=== PATIENT | male | born 1950 | race Caucasian/White ===

== ENCOUNTER 2018-08-18 19:59 | Emergency (ER) | payer OTHER, SELFPAY ==
[2018-08-18] VITALS (7 sets, daily range): BP systolic 125–132; BP diastolic 61–69; PULSE 68–89; RESP 13–25; TEMP 36.6; O2SAT 94–100
--- NOTE | 2018-08-18 20:06 | DI.CT_ITS ---
SYMPTOM/DIAGNOSIS: LUQ DISTENSION, SUSPECT HERNIA, ? INCARCERATION, H/O LEUKEMIA AND SPLENECTOMY, LLQ PAIN ABDOMEN AND PELVIC CT: CT examination of the abdomen and pelvis was performed with a bolus infusion of 100 cc's of Omnipaque 350 and ingestion of dilute barium. Images obtained through the lung bases are unremarkable. Liver, spleen and pancreas appear normal. Note is made of cholelithiasis. No pericholecystic edema or fluid collection is seen. No biliary dilatation is seen. Abdominal aorta is of normal diameter and no major vascular abnormality is seen. Adrenals appear normal bilaterally. There are multiple bilateral renal cysts and bilateral non obstructing renal calculi. No ureteral calcification is seen. No hydronephrosis. No abdominal or pelvic adenopathy is seen. Appendix is normal. Note is made of fluid filled ascending and transverse colon which may be associated with diarrhea. No evidence of obstruction. Ventral hernia is noted with its aperture measuring about 2 cm. in diameter with 9 cm. in diameter contents including fat but no bowel. An additional small fat containing group of hernias is noted in the epigastric region superior to the largest ventral hernia. Comparison with previous examination of 11/2014 shows slight interval increase in size of the largest ventral hernia. CONCLUSION: No evidence of acute intra-abdominal process. Cholelithiasis noted. Fluid filled colonic distension consistent with diarrhea.
[2018-08-18 20:17] LABS: Lactate-non-spesis 2.5 mmol/l (0.6-1.4)
[2018-08-18] MEDS: Normal Saline 1,000 ML 1000 ML IV ×2 (20:17→21:16)
[2018-08-18] MEDS: Ondansetron 4 MG/2 ML VIAL IVP (20:18)
[2018-08-18 20:25] LABS: Abs Immature Grans 0.08 k/cumm (0.0-0.09); Absolute Basophil Count 0.03 k/cumm (0.0-0.2); Absolute Eosinophil Count 0.13 k/cumm (0.0-0.7); Absolute Lymphocyte Count 0.31 k/cumm (1.2-3.4); Absolute Monocyte Count 1.21 k/cumm (0.11-0.7); Absolute Neutrophil Count 6.51 k/cumm (1.2-6.7); Basophils % 0.4; Eosinophils % 1.6; HCT 43.7 % (40.0-50.0); Lymphocytes % 3.7; Mean Corp. HGB Concentration 34.3 g/dL (32.0-36.0); Mean Corpuscular Hemoglobin 31.8 pg (27.0-33.0); Mean Corpuscular Volume 92.6 fL (80-95); Mean Platelet Volume 10.5 fL (8.0-11.0); Monocytes % 14.6; Neutrophils % 78.7; Platelet Count 172 x1000/uL (130-400); RBC 4.72 m/cumm (4.50-6.00); RBC Distribution Width 13.9 % (11.8-14.1); White Blood Cell Count 8.27 k/cumm (4.4-10.8)
[2018-08-18 20:33] LABS: Lipase 79 U/L (73-393)
[2018-08-18 20:34] LABS: INR 1.2 (0.9-1.1); PTT Activated 18.4 sec (21.0-31.4); Prothrombin Time 11.6 sec (9.3-11.0)
[2018-08-18 20:36] LABS: ALT 33 U/L (12-78); AST 31 U/L (15-37); Albumin 4.5 g/dL (3.4-5.0); Alkaline Phosphatase 91 U/L (46-116); Anion Gap 13.8 mmol/L (3-11); BUN 23 mg/dL (7-18); Bilirubin, Total 1.5 mg/dL (0.2-1.0); CO2 24.2 mmol/L (21.0-32.0); CREATININE 1.02 mg/dL (0.70-1.30); Calcium 10.4 mg/dL (8.5-10.1); Chloride 104 mmol/L (98-107); Glucose 173 mg/dL (70-100); Potassium 4.3 mmol/L (3.5-5.1); Sodium 142 mmol/L (136-145); Total Protein 6.9 g/dL (6.4-8.2)
--- NOTE | 2018-08-18 20:45 | W.ED.GENAD ---
Discharge Plan Disposition Patient Disposition: HOME Condition: Good Discharge Details Chief Complaint: Abd Prob Clinical Impression: Abdominal pain, Ileus, Abdominal hernia Primary Care Provider: Vero Gutiérrez ED Provider: Thanh Ramon Home Meds and New Rx's Prescriptions: No Action Azothyoprin PO DAILY RF: 0 terazosin 2 MG capsule 2 mg PO DAILY RF: 0 ondansetron 4 MG tablet,disintegrating 4 mg PO PRN PRNRF: 0 quetiapine 25 mg Tablet 25 mg PO HS RF: 0 atorvastatin 40 mg Tablet 40 mg PO DAILY RF: 0 lisinopril 10 mg Tablet 10 mg PO DAILY RF: 0 sertraline 25 mg Tablet 12.5 mg PO DAILY RF: 0 Imbruvica 140 mg Tablet 140 mg PO DAILY RF: 0 Discharge Instructions Instructions: Ileus (ED), Incisional Hernia (GEN) Additional Instructions: You have a notable hernia, and at this time it is soft, does not show signs of strangulation. Since you are able to eat and drink well, and after discussion together he can be discharged home however you need to immediately follow-up with your surgeon at the CT in the next 24 to 48 hours. Please stick to a diet of liquid foods for the next 2 to 3 days. If you notice any worsening of your symptoms, or any new symptoms such as return of vomiting, diarrhea, fever, chills, shortness of breath, chest pain, numbness, weakness, or fainting , please return immediately to the emergency department for reevaluation. Please follow up with your primary care provider as soon as possible for reassessment and reevaluation. As always, it was a pleasure participating in your medical care today. Referrals: Vero Gutiérrez [Primary Care Provider] - Medical Decision Making This is a 67-year-old male who presents today for evaluation of left upper quadrant abdominal pain. He is currently on chemotherapy, which does have a common side effect of abdominal pain but he states that this is different compared to normal. He has had multiple episodes of vomiting since 5 PM. His pain has not been improving but rather worsening. Exam demonstrates distention in the left upper abdominal quadrant consistent with what I suspect to be a incisional hernia. We will get a CT scan with oral contrast to evaluate for incarceration and strangulation. It may just be mesentery. We will rehydrate, and reasses. 11:[address] scan results have returned demonstrate evidence of a fat-containing left supraumbilical ventral hernia that is increased in size. No bowel loops demonstrated within the hernia per virtual radiology. There is evidence of a localized left lower quadrant ileus, as well as localized wall thickening in the rectum suggestive of mild proctitis. Patient's laboratory work-up is returned, he has no evidence of elevated white count, no left shift, no bandemia. Renal function normal, electrolytes normal, initial lactate was elevated at 2.5, however repeat lactate is 0.8. Lipase is normal, urinalysis is negative for infection. On reassessment the patient has complete resolution of his symptoms. The ventral hernia is now completely nontender, and less distended. I am able to completely reduce it though. However with this he has no tenderness whatsoever. The patient denies any sensation of wanting to have a bowel movement, pain in his rectum, or pain in his lower abdomen. Repeat exam demonstrates no pain or tenderness there. He is been having regular bowel movements without any pain or difficulty. He has had no vomiting since his arrival with [facility]. He is tolerated fluids well without any complication. I did contact Dr. Wilks the surgeon and discussed the case with her. We reviewed the patient's reassessment, labs, and imaging. At this time we see no indication for acute surgical intervention. I did go back and discussed the case with the patient, and at this time he states that he would like to go home. I did discuss overnight observation, or referral with our surgeon he has made it very clear that he does not want this at this time, but would instead rather follow-up with the CT tomorrow. We discussed the risks and benefits of waiting, and he accepts these, and would [facility] to [facility]. Accepting these risks and through shared decision making process respecting the patient's wishes I do feel that this is reasonable. With no symptoms of tenesmus, pain with defecation, elevated white count, or lower abdominal pain rectal pain whatsoever, and in the setting of an absence of white count, no fever, no tachycardia I do not feel that antibiotic treatment for proctitis is indicated at this time. We will hold off and allow his close follow-up on an outpatient setting with [facility] team tomorrow morning. We discussed red flags which to return. I have extensively reviewed the treatment plan and discharge instructions with the patient and their family. I have addressed all patient concerns at this time. The patient and family was made aware of what symptoms to monitor for that would warrant a return to the emergency department. Discussed the plan with the patient and family, they demonstrate verbal understanding and agreement with our assessment and plan at this time. FINDINGS: Liver: Normal. No mass. Gallbladder and bile ducts: Gallstones. Pancreas: Normal. No ductal dilation. Spleen: Prior splenectomy. Adrenals: Normal. No mass. Kidneys and ureters: Bilateral nonobstructing radiopaque renal calculi. Sub-centimeters simple cysts in each kidney. No hydronephrosis. Stomach and bowel: Wall thickening localized to rectum. Mild diverticulosis is present in the sigmoid and descending colon. Predominantly fluid-filled colon with scattered fecal debris. Minimally prominent loops of ileum in upper left pelvis. Stomach distended with administered oral contrast. Appendix: No evidence of appendicitis. Intraperitoneal space: Normal. No free air. No significant fluid collection. Vasculature: Dilated common iliac arteries, the right measuring 1.4 and the left 1.6 cm in diameter. No abdominal aortic aneurysm. Lymph nodes: Normal. No enlarged lymph nodes. Bladder: Unremarkable as visualized. Reproductive: Unremarkable as visualized. Bones/joints: Bones are demineralized. There are multilevel degenerative changes in visualized spine. Soft tissues: Fat-containing left supraumbilical ventral hernia has increased in size. No bowel loops demonstrated within the hernia. IMPRESSION: Localized left lower quadrant ileus. Predominantly fluid-filled colon, a finding associated with diarrhea. Ventral hernias has increased in size. Localized wall thickening in rectum consistent with presence of colitis/proctitis. Gallstones. Bilateral, nonobstructing renal calculi. Colonic diverticula. Dilated common iliac arteries. Dictated and Authenticated by: Rios Saldivar MD. Ordering:MARCIO Law MD HPI General Date/Time Provider Initiated Documentation: 08/18/18 19:59. HPI Narrative: This is a 67-year-old male with a past medical history of leukemia, currently receiving chemotherapy for this, who presents today for evaluation of vomiting. Patient states that earlier today he had mild cramps and achiness in his abdomen, and then at 5 PM he began having episodes of vomiting as the pain worsened. He did try an enema and some stool softeners but this is not improving symptoms. Pain is located in the left upper quadrant of the abdomen. Made worse with eating, drinking, and movement. He does have a notable abdominal surgical history of a splenectomy for his leukemia. He denies any other significant abdominal surgeries. He denies any trauma. He denies any diarrhea. He did have 2 bowel movements earlier today which is been otherwise benign. He states that his chemotherapy has caused symptoms of abdominal pain in the past, but nothing like this. He is also noticed significant distention of his left upper quadrant of his abdomen. He arrives today via EMS. Vital signs have remained stable. No other complaints or modifying factors. Related Data Home Medications Medication Instructions Recorded Confirmed Azothyoprin PO DAILY 12/19/13 04/20/14 terazosin 2 mg PO DAILY 12/19/13 08/18/18 ondansetron 4 mg PO PRN PRN 04/21/16 08/18/18 atorvastatin 40 mg PO DAILY 08/18/18 08/18/18 ibrutinib [Imbruvica] 140 mg PO DAILY 08/18/18 08/18/18 lisinopril 10 mg PO DAILY 08/18/18 08/18/18 quetiapine 25 mg PO HS 08/18/18 08/18/18 sertraline 12.5 mg PO DAILY 08/18/18 08/18/18 Allergies Allergy/AdvReac Type Severity Reaction Status Date / Time Sulfa (Sulfonamide Allergy Severe Anaphylaxsi Unverified 04/21/16 05:33 Antibiotics) s diphenhydramine HCl Allergy Unverified 04/21/16 05:33 [From Benadryl] General Stated Complaint: Abd Prob TOBY: 3 Review of Systems Review of Systems All systems reviewed & are unremarkable except as noted in HPI and below PFSH Social History Smoking/Tobacco Use Status: Never Alcohol Intake: never Drug use: Never Do you feel safe at home: Yes Do you feel safe in your relationship?: Yes Exam Narrative Exam Narrative: 1.Const: Well-nourished, Well-developed, appearing stated age 2.Eyes: PERRL, no conjunctival injection, and symmetrical lids. 3.ENT: Atraumatic external nose and ears. Notably dry MM. Neck: Symmetric, trachea midline, No thyromegaly. 4.CVS: +S1/S2, No murmurs or gallops. Peripheral pulses 2+ and equal in all extremities. Brisk capillary refill in all extremities. 5.RESP: Unlabored respiratory effort. Clear to auscultation bilaterally. No wheezes rales or rhonchi 6.GI: Soft, left upper quadrant abdominal distention, notable tenderness in this area. Signs and symptoms appear similar to a hernia. Unable to significantly reduce with pressure. No redness or erythema. Pain is not out of proportion. No pain in the left lower right lower or right upper abdominal quadrants. Large central incisional scar. 7.MSK: Normocephalic/Atraumatic, Extremities w/o deformity or ttp No cyanosis or clubbing, Normal movement of all extremities 8.Skin: Warm, Dry. No rashes or lesions. 9.Neuro: manager nursing home II-XII grossly intact. Sensation grossly intact, no focal neurologic deficits. 10.Psych: (AAO) x3. Appropriate mood and affect Course Vital Signs Temperature 36.6 C 08/18/18 19:59 Pulse 83 08/18/18 19:59 Respiratory Rate 13 08/18/18 19:59 Blood Pressure 125/67 08/18/18 19:59 Pulse Oximetry 100 08/18/18 19:59 Temperature 36.6 C 08/18/18 19:59 Temperature Source Skin 08/18/18 19:59 Pulse 83 08/18/18 19:59 Respiratory Rate 13 08/18/18 19:59 Respiratory Effort Non-Labored 08/18/18 20:21 Blood Pressure 125/67 08/18/18 19:59 Blood Pressure Position Sitting 08/18/18 19:59 Pulse Oximetry 100 08/18/18 19:59 Oxygen Delivery Method Room Air 08/18/18 19:59 Oxygen Flow Rate 0 08/18/18 19:59 Pain Level 6 08/18/18 19:59 Lab/Test Results Lab/Test Results: Laboratory Tests Range/Units 08/18/18 08/18/18 08/18/18 20:14 20:14 20:14 WBC (4.4-10.8) k/cumm 8.27 RBC (4.50-6.00) m/cumm 4.72 Hgb (13.5-17.5) g/dL 15.0 Hct (40.0-50.0) % 43.7 MCV (80-95) fL 92.6 MCH (27.0-33.0) pg 31.8 MCHC (32.0-36.0) g/dL 34.3 RDW (11.8-14.1) % 13.9 Plt Count (130-400) x1000/uL 172 MPV (8.0-11.0) fL 10.5 Immature Gran % 1.0 Neutrophils % 78.7 Lymphocytes % 3.7 Monocytes % 14.6 Eosinophils % 1.6 Basophils % 0.4 Absolute Neutrophils (1.2-6.7) k/cumm 6.51 Absolute Lymphocytes (1.2-3.4) k/cumm 0.31 L Absolute Monocytes (0.11-0.7) k/cumm 1.21 H Absolute Eosinophils (0.0-0.7) k/cumm 0.13 Absolute Basophils (0.0-0.2) k/cumm 0.03 PT (9.3-11.0) sec INR (0.9-1.1) APTT (21.0-31.4) sec Sodium (136-145) mmol/L 142 Potassium (3.5-5.1) mmol/L 4.3 Chloride (98-107) mmol/L 104 Carbon Dioxide (21.0-32.0) mmol/L 24.2 Anion Gap (3-11) mmol/L 13.8 H BUN (7-18) mg/dL 23 H Creatinine (0.70-1.30) mg/dL 1.02 Estimated GFR/1.73 m2 (mL/min/1.73m2) >= 60.00 Glucose (70-100) mg/dL 173 H Lactate (0.6-1.4) mmol/l Calcium (8.5-10.1) mg/dL 10.4 H Total Bilirubin (0.2-1.0) mg/dL 1.5 H AST (15-37) U/L 31 ALT (12-78) U/L 33 Alkaline Phosphatase (46-116) U/L 91 Total Protein (6.4-8.2) g/dL 6.9 Albumin (3.4-5.0) g/dL 4.5 Lipase (73-393) U/L 79 Range/Units 08/18/18 08/18/18 20:14 20:14 WBC (4.4-10.8) k/cumm RBC (4.50-6.00) m/cumm Hgb (13.5-17.5) g/dL Hct (40.0-50.0) % MCV (80-95) fL MCH (27.0-33.0) pg MCHC (32.0-36.0) g/dL RDW (11.8-14.1) % Plt Count (130-400) x1000/uL MPV (8.0-11.0) fL Immature Gran % Neutrophils % Lymphocytes % Monocytes % Eosinophils % Basophils % Absolute Neutrophils (1.2-6.7) k/cumm Absolute Lymphocytes (1.2-3.4) k/cumm Absolute Monocytes (0.11-0.7) k/cumm Absolute Eosinophils (0.0-0.7) k/cumm Absolute Basophils (0.0-0.2) k/cumm PT (9.3-11.0) sec 11.6 H INR (0.9-1.1) 1.2 H APTT (21.0-31.4) sec 18.4 L Sodium (136-145) mmol/L Potassium (3.5-5.1) mmol/L Chloride (98-107) mmol/L Carbon Dioxide (21.0-32.0) mmol/L Anion Gap (3-11) mmol/L BUN (7-18) mg/dL Creatinine (0.70-1.30) mg/dL Estimated GFR/1.73 m2 (mL/min/1.73m2) Glucose (70-100) mg/dL Lactate (0.6-1.4) mmol/l 2.5 H Calcium (8.5-10.1) mg/dL Total Bilirubin (0.2-1.0) mg/dL AST (15-37) U/L ALT (12-78) U/L Alkaline Phosphatase (46-116) U/L Total Protein (6.4-8.2) g/dL Albumin (3.4-5.0) g/dL Lipase (73-393) U/L
[2018-08-18 21:13] LABS: Bilirubin Negative (Negative); Blood Small (Negative); Clarity Clear (Clear); Glucose Negative (Negative); Ketones 40 mg/dL (Negative); Leukocyte Esterase Negative (Negative); Nitrite Negative (Negative); Specific Gravity 1.015 (1.005-1.025); Urobilinogen 0.2 EU/dL (Up TO 0.2)
[2018-08-18 21:19] LABS: Bacteria Negative HPF (Negative); C & S Indicated? No; Casts Negative LPF (Negative); Crystals Negative HPF (Negative); Epithelial Cells Negative HPF (Negative); Mucus Negative (Negative); Other Cells Negative (Negative)
[2018-08-18] MEDS: Omnipaque 350 MG/ML 100 ML BTL IV (21:33)
--- NOTE | 2018-08-18 22:37 | DI.VRAD_ITS ---
Addendum created by Rios Saldivar DO on 08/18/2018 10:54:05 PM EDT Case discussed with Dr. Ramon Re: ventral hernia at approximately 10:45 PM on August 18. Initial report created on 08/18/2018 10:37:08 PM EDT EXAM: CT Abdomen and Pelvis With Contrast EXAM DATE/TIME: 08/18/2018 8:10 PM CLINICAL HISTORY: 67 years old, male; Abdominal pain; Localized; Left lower quadrant (llq); Prior surgery; Surgery date: 6+ months; Surgery type: Splenectomy, lukemia; Patient HX: Lllq pain, distention TECHNIQUE: Imaging protocol: Axial computed tomography images of the abdomen and pelvis with intravenous contrast. Coronal and sagittal reformatted images were created and reviewed. Radiation optimization: All CT scans at this facility use at least one of these dose optimization techniques: automated exposure control; mA and/or kV adjustment per patient size (includes targeted exams where dose is matched to clinical indication); or iterative reconstruction. Contrast material: OMNIPAQUE 350; Contrast volume: 98 ml; Contrast route: IV; COMPARISON: CT RENAL COLIC WO CONTRAST 11/25/2014 1:04 AM FINDINGS: Liver: Normal. No mass. Gallbladder and bile ducts: Gallstones. Pancreas: Normal. No ductal dilation. Spleen: Prior splenectomy. Adrenals: Normal. No mass. Kidneys and ureters: Bilateral nonobstructing radiopaque renal calculi. Sub-centimeters simple cysts in each kidney. No hydronephrosis. Stomach and bowel: Wall thickening localized to rectum. Mild diverticulosis is present in the sigmoid and descending colon. Predominantly fluid-filled colon with scattered fecal debris. Minimally prominent loops of ileum in upper left pelvis. Stomach distended with administered oral contrast. Appendix: No evidence of appendicitis. Intraperitoneal space: Normal. No free air. No significant fluid collection. Vasculature: Dilated common iliac arteries, the right measuring 1.4 and the left 1.6 cm in diameter. No abdominal aortic aneurysm. Lymph nodes: Normal. No enlarged lymph nodes. Bladder: Unremarkable as visualized. Reproductive: Unremarkable as visualized. Bones/joints: Bones are demineralized. There are multilevel degenerative changes in visualized spine. Soft tissues: Fat-containing left supraumbilical ventral hernia has increased in size. No bowel loops demonstrated within the hernia. IMPRESSION: Localized left lower quadrant ileus. Predominantly fluid-filled colon, a finding associated with diarrhea. Ventral hernias has increased in size. Localized wall thickening in rectum consistent with presence of colitis/proctitis. Gallstones. Bilateral, nonobstructing renal calculi. Colonic diverticula. Dilated common iliac arteries. Dictated and Authenticated by: Rios Saldivar MD. Ordering:MARCIO Law MD
[2018-08-18 22:59] LABS: Lactate-non-spesis 0.8 mmol/l (0.6-1.4)
--- NOTE | 2018-08-18 23:00 | NUR.NOTE ---
Nursing Note: FAXED REFERAL FOR THIS Friday08/20/18 TO FOLLOW UP WITH SURGERY
== END 2018-08-18 23:23 | disposition home or self-care (01) ==
PROVIDERS: Emergency Provider Student in an Organized Health Care Education/Training Program; PCP Internal Medicine
DX: K56.7 Ileus, unspecified (principal); K43.9 Ventral hernia without obstruction or gangrene
CPT/HCPCS: 36415; 80053; 83690; 96361; 96374; 96375; 99285; 74177; 81003; 81015; 83605; 85025; 85610; 85730; 99284; J2270; J2405; J3490

== ENCOUNTER 2019-12-27 00:48 | Outpatient (RCR) | payer OTHER, SELFPAY ==
[2019-12-27] MEDS: Normal Saline Flush 10 ML SYR IVP (09:11)
[2019-12-27] MEDS: Heparin 500 UNITS/5 ML SYRINGE IV (09:11)
[2019-12-27 09:16] LABS: HCT 43.7 % (40.0-50.0); HGB 14.8 g/dL (13.5-17.5); MCH 32.5 pg (27.0-33.0); MCHC 33.9 % (32.0-36.0); MPV 9.3 fL (8.0-11.0); Nucleated RBC 0 %; RBC 4.55 10^6/uL (4.36-5.78); RDW 13.7 % (11.8-14.1); RDW-SD 48.9 fL; WBC 7.79 10^3/uL (4.4-10.8)
[2019-12-27 09:28] LABS: ALT 25 U/L (16-63); AST 20 U/L (15-37); Albumin 3.7 g/dL (3.4-5.0); Alkaline Phosphatase 86 U/L (46-116); Anion Gap 9.1 mmol/L (3-11); BUN 14 mg/dL (7-18); Bilirubin, Total 0.5 mg/dL (0.2-1.0); CO2 27.9 mmol/L (21.0-32.0); CREATININE 1.21 mg/dL (0.70-1.30); Calcium 9.7 mg/dL (8.5-10.1); Chloride 104 mmol/L (98-107); Estimated GFR 59.64 (mL/min/1.73m2); Glucose 89 mg/dL (74-106); Potassium 3.8 mmol/L (3.5-5.1); Sodium 141 mmol/L (136-145); Total Protein 6.5 g/dL (6.4-8.2)
[2019-12-27 09:42] LABS: Absolute Basophil Count 0.08 10^3/uL (0.0-0.2); Absolute Eosinophil Count 0.08 10^3/uL (0.0-0.7); Absolute Monocyte Count 2.03 10^3/uL (0.1-0.8); Absolute Neutrophil Count 4.91 10^3/uL (1.2-6.7); Atypical Lymphocytes % 4; Diff Comment Manual Differential; Howell-Jolly Bodies Present
[2019-12-27 09:43] LABS: Poikilocytes 1+
[2019-12-27 09:44] LABS: Platelet Count 407 10^3/uL (130-400)
== END 2020-01-10 23:59 | disposition home or self-care (01) ==
LOC: INF 00:48
PROVIDERS: Internal Medicine; PCP Internal Medicine; Visit Provider Family Medicine
DX: D86.9 Sarcoidosis, unspecified (principal); Z45.2 Encounter for adjustment and management of vascular access device
CPT/HCPCS: 36591; 80053; 85025

== ENCOUNTER 2020-01-25 01:03 | Outpatient (RCR) | payer OTHER, SELFPAY ==
[2020-01-25] MEDS: Heparin 500 UNITS/5 ML SYRINGE IV (10:29)
[2020-01-25] MEDS: Normal Saline Flush 10 ML SYR IVP (10:29)
[2020-01-25 10:37] LABS: Abs Immature Grans 0.04 10^3/uL (0.0-0.06); Absolute Basophil Count 0.08 10^3/uL (0.0-0.2); Absolute Eosinophil Count 0.32 10^3/uL (0.0-0.7); Absolute Lymphocyte Count 0.83 10^3/uL (1.2-3.4); Absolute Monocyte Count 1.98 10^3/uL (0.1-0.8); Absolute Neutrophil Count 3.99 10^3/uL (1.2-6.7); Basophils % 1.1; Eosinophils % 4.4; HGB 14.2 g/dL (13.5-17.5); Immature Grans % 0.6; Lymphocytes % 11.5; MCH 31.9 pg (27.0-33.0); MCHC 33.8 % (32.0-36.0); MCV 94.4 fL (80-95); MPV 9.5 fL (8.0-11.0); Monocytes % 27.3; Neutrophils % 55.1; Nucleated RBC 0 %; Platelet Count 338 10^3/uL (130-400); RBC 4.45 10^6/uL (4.36-5.78); RDW 13.5 % (11.8-14.1); RDW-SD 46.8 fL; WBC 7.24 10^3/uL (4.4-10.8)
[2020-01-25 10:46] LABS: Diff Comment Diff Reviewed; Polychromasia Present
[2020-01-25 10:47] LABS: Poikilocytes 2+
[2020-01-25 10:58] LABS: ALT 28 U/L (16-63); AST 24 U/L (15-37); Albumin 3.9 g/dL (3.4-5.0); Alkaline Phosphatase 92 U/L (46-116); Anion Gap 7.8 mmol/L (3-11); BUN 18 mg/dL (7-18); Bilirubin, Total 0.7 mg/dL (0.2-1.0); CO2 26.2 mmol/L (21.0-32.0); CREATININE 1.13 mg/dL (0.70-1.30); Calcium 10.4 mg/dL (8.5-10.1); Chloride 105 mmol/L (98-107); Glucose 128 mg/dL (74-106); Potassium 3.4 mmol/L (3.5-5.1); Sodium 139 mmol/L (136-145); Total Protein 6.2 g/dL (6.4-8.2)
== END 2020-02-10 23:59 | disposition home or self-care (01) ==
LOC: INF 01:03
PROVIDERS: PCP Internal Medicine; Visit Provider Internal Medicine
DX: C91.90 Lymphoid leukemia, unspecified not having achieved remission (principal); Z45.2 Encounter for adjustment and management of vascular access device; D86.9 Sarcoidosis, unspecified
CPT/HCPCS: 36591; 80053; 85025

== ENCOUNTER 2020-02-25 10:31 | Outpatient (RCR) | payer OTHER, SELFPAY ==
[2020-02-25] MEDS: Heparin 500 UNITS/5 ML SYRINGE (10:52)
[2020-02-25] MEDS: Normal Saline Flush 10 ML SYR IVP (10:52)
[2020-02-25 11:08] LABS: Abs Immature Grans 0.02 10^3/uL (0.0-0.06); Absolute Basophil Count 0.07 10^3/uL (0.0-0.2); Absolute Eosinophil Count 0.21 10^3/uL (0.0-0.7); Absolute Lymphocyte Count 0.56 10^3/uL (1.2-3.4); Absolute Monocyte Count 1.33 10^3/uL (0.1-0.8); Absolute Neutrophil Count 3.35 10^3/uL (1.2-6.7); Basophils % 1.3; Eosinophils % 3.8; HCT 40.1 % (40.0-50.0); HGB 13.7 g/dL (13.5-17.5); Immature Grans % 0.4; Lymphocytes % 10.1; MCH 32.1 pg (27.0-33.0); MCHC 34.2 % (32.0-36.0); MCV 93.9 fL (80-95); Neutrophils % 60.4; Nucleated RBC 1 %; Platelet Count 299 10^3/uL (130-400); RBC 4.27 10^6/uL (4.36-5.78); RDW 14.6 % (11.8-14.1); RDW-SD 50.5 fL; WBC 5.54 10^3/uL (4.4-10.8)
[2020-02-25 11:22] LABS: ALT 25 U/L (16-63); AST 21 U/L (15-37); Albumin 3.9 g/dL (3.4-5.0); Alkaline Phosphatase 69 U/L (46-116); Anion Gap 9.2 mmol/L (3-11); BUN 16 mg/dL (7-18); Bilirubin, Direct 0.17 mg/dL (0.00-0.20); CO2 25.8 mmol/L (21.0-32.0); CREATININE 1.09 mg/dL (0.70-1.30); Calcium 9.5 mg/dL (8.5-10.1); Chloride 105 mmol/L (98-107); Glucose 100 mg/dL (74-106); Potassium 3.7 mmol/L (3.5-5.1); Sodium 140 mmol/L (136-145); Total Protein 6.3 g/dL (6.4-8.2)
[2020-02-25 11:27] LABS: GGT 35 U/L (15-85)
== END 2020-03-12 23:59 | disposition home or self-care (01) ==
LOC: INF 10:31
PROVIDERS: Internal Medicine; PCP Internal Medicine; Visit Provider Family Medicine
DX: C91.90 Lymphoid leukemia, unspecified not having achieved remission (principal); Z45.2 Encounter for adjustment and management of vascular access device; D86.9 Sarcoidosis, unspecified
CPT/HCPCS: 36591; 80048; 80076; 82977; 85025

== ENCOUNTER 2020-03-24 04:45 | Outpatient (RCR) | payer OTHER, SELFPAY ==
[2020-03-24] MEDS: Heparin 500 UNITS/5 ML SYRINGE IV (09:06)
[2020-03-24] MEDS: Normal Saline Flush 10 ML SYR IVP (09:06)
[2020-03-24 09:18] LABS: Abs Immature Grans 0.03 10^3/uL (0.0-0.06); Absolute Basophil Count 0.08 10^3/uL (0.0-0.2); Absolute Eosinophil Count 0.14 10^3/uL (0.0-0.7); Absolute Lymphocyte Count 0.57 10^3/uL (1.2-3.4); Absolute Monocyte Count 1.31 10^3/uL (0.1-0.8); Absolute Neutrophil Count 3.15 10^3/uL (1.2-6.7); Basophils % 1.5; Eosinophils % 2.7; HCT 38.4 % (40.0-50.0); HGB 13.3 g/dL (13.5-17.5); Immature Grans % 0.6; Lymphocytes % 10.8; MCH 33.3 pg (27.0-33.0); MCHC 34.6 % (32.0-36.0); Monocytes % 24.8; Neutrophils % 59.6; Nucleated RBC 0 %; Platelet Count 285 10^3/uL (130-400); RDW 17.2 % (11.8-14.1); RDW-SD 60.6 fL; WBC 5.28 10^3/uL (4.4-10.8)
[2020-03-24 09:30] LABS: ALT 23 U/L (16-63); AST 24 U/L (15-37); Albumin 3.9 g/dL (3.4-5.0); Alkaline Phosphatase 57 U/L (46-116); Anion Gap 9.5 mmol/L (3-11); BUN 16 mg/dL (7-18); Bilirubin, Direct 0.23 mg/dL (0.00-0.20); Bilirubin, Total 1.2 mg/dL (0.2-1.0); CO2 26.5 mmol/L (21.0-32.0); CREATININE 0.8 mg/dL (0.70-1.30); Calcium 9.2 mg/dL (8.5-10.1); Chloride 106 mmol/L (98-107); Glucose 94 mg/dL (74-106); Potassium 3.6 mmol/L (3.5-5.1); Sodium 142 mmol/L (136-145); Total Protein 6.5 g/dL (6.4-8.2)
== END 2020-04-09 23:59 | disposition home or self-care (01) ==
LOC: INF 04:45
PROVIDERS: PCP Internal Medicine; Visit Provider Family Medicine
DX: Z45.2 Encounter for adjustment and management of vascular access device; D86.9 Sarcoidosis, unspecified; C91.90 Lymphoid leukemia, unspecified not having achieved remission
CPT/HCPCS: 36591; 80048; 80076; 85025

== ENCOUNTER 2020-04-21 05:01 | Outpatient (RCR) | payer OTHER, SELFPAY ==
[2020-04-21] MEDS: Normal Saline Flush 10 ML SYR IVP (09:05)
[2020-04-21] MEDS: Heparin 500 UNITS/5 ML SYRINGE IV (09:05)
[2020-04-21 09:16] LABS: Abs Immature Grans 0.02 10^3/uL (0.0-0.06); Absolute Basophil Count 0.06 10^3/uL (0.0-0.2); Absolute Eosinophil Count 0.14 10^3/uL (0.0-0.7); Absolute Lymphocyte Count 0.55 10^3/uL (1.2-3.4); Absolute Monocyte Count 1.16 10^3/uL (0.1-0.8); Absolute Neutrophil Count 2.54 10^3/uL (1.2-6.7); Basophils % 1.3; Eosinophils % 3.1; HCT 38.2 % (40.0-50.0); HGB 13.4 g/dL (13.5-17.5); Immature Grans % 0.4; Lymphocytes % 12.3; MCH 34.6 pg (27.0-33.0); MCHC 35.1 % (32.0-36.0); MCV 98.7 fL (80-95); MPV 10.3 fL (8.0-11.0); Neutrophils % 56.9; Nucleated RBC 0 %; Platelet Count 244 10^3/uL (130-400); RBC 3.87 10^6/uL (4.36-5.78); RDW 17.2 % (11.8-14.1); RDW-SD 62.5 fL; WBC 4.47 10^3/uL (4.4-10.8)
[2020-04-21 09:29] LABS: ALT 22 U/L (16-63); AST 21 U/L (15-37); Albumin 3.8 g/dL (3.4-5.0); Alkaline Phosphatase 66 U/L (46-116); Anion Gap 9.5 mmol/L (3-11); BUN 19 mg/dL (7-18); Bilirubin, Direct 0.2 mg/dL (0.0-0.2); CO2 26.5 mmol/L (21.0-32.0); CREATININE 0.8 mg/dL (0.70-1.30); Calcium 8.9 mg/dL (8.5-10.1); Chloride 105 mmol/L (98-107); Glucose 142 mg/dL (74-106); Potassium 3.7 mmol/L (3.5-5.1); Sodium 141 mmol/L (136-145); Total Protein 6.3 g/dL (6.4-8.2)
== END 2020-05-10 23:59 | disposition home or self-care (01) ==
LOC: INF 05:01
PROVIDERS: PCP Internal Medicine; Visit Provider Family Medicine
DX: C91.90 Lymphoid leukemia, unspecified not having achieved remission (principal); Z45.2 Encounter for adjustment and management of vascular access device; D86.9 Sarcoidosis, unspecified
CPT/HCPCS: 36591; 80048; 80076; 85025

== ENCOUNTER 2020-11-15 02:46 | Outpatient (CLI) | payer OTHER, SELFPAY ==
[2020-11-15 14:25] LABS: Abs Immature Grans 0.04 10^3/uL (0.0-0.06); Absolute Basophil Count 0.07 10^3/uL (0.0-0.2); Absolute Eosinophil Count 0.13 10^3/uL (0.0-0.7); Absolute Monocyte Count 0.94 10^3/uL (0.1-0.8); Absolute Neutrophil Count 3.79 10^3/uL (1.2-6.7); Basophils % 1.2; Eosinophils % 2.3; HCT 38.7 % (40.0-50.0); HGB 13.2 g/dL (13.5-17.5); Immature Grans % 0.7; Lymphocytes % 13.9; MCH 34.6 pg (27.0-33.0); MCHC 34.1 % (32.0-36.0); MCV 101.6 fL (80-95); MPV 9.4 fL (8.0-11.0); Monocytes % 16.3; Neutrophils % 65.6; Nucleated RBC 0 %; Platelet Count 308 10^3/uL (130-400); RBC 3.81 10^6/uL (4.36-5.78); RDW 14.3 % (11.8-14.1); RDW-SD 53.4 fL; WBC 5.77 10^3/uL (4.4-10.8)
== END 2020-11-15 02:47 | disposition home or self-care (01) ==
LOC: LBO 02:46
PROVIDERS: PCP Internal Medicine; Visit Provider Internal Medicine Hematology & Oncology
DX: C91.90 Lymphoid leukemia, unspecified not having achieved remission (principal); D59.10 Autoimmune hemolytic anemia, unspecified
CPT/HCPCS: 36415; 85025

== ENCOUNTER 2020-12-29 08:00 | Outpatient (RCR) | payer OTHER, SELFPAY ==
[2020-12-29] MEDS: Normal Saline Flush 10 ML SYR IVP (08:06)
[2020-12-29] MEDS: Heparin 500 UNITS/5 ML SYRINGE IV (08:07)
[2020-12-29 08:08] LABS: Abs Immature Grans 0.02 10^3/uL (0.0-0.06); Absolute Basophil Count 0.09 10^3/uL (0.0-0.2); Absolute Eosinophil Count 0.22 10^3/uL (0.0-0.7); Absolute Lymphocyte Count 0.53 10^3/uL (1.2-3.4); Absolute Monocyte Count 1.64 10^3/uL (0.1-0.8); Absolute Neutrophil Count 2.25 10^3/uL (1.2-6.7); Basophils % 1.9; Eosinophils % 4.6; HCT 41.3 % (40.0-50.0); HGB 13.9 g/dL (13.5-17.5); Immature Grans % 0.4; Lymphocytes % 11.2; MCH 34.1 pg (27.0-33.0); MCHC 33.7 % (32.0-36.0); MCV 101.2 fL (80-95); MPV 9.6 fL (8.0-11.0); Monocytes % 34.5; Neutrophils % 47.4; Nucleated RBC 0 %; Platelet Count 307 10^3/uL (130-400); RBC 4.08 10^6/uL (4.36-5.78); RDW 14.1 % (11.8-14.1); RDW-SD 53.1 fL; WBC 4.75 10^3/uL (4.4-10.8)
[2020-12-29 08:22] LABS: Diff Comment Diff Reviewed; RBC Morphology Normal
== END 2021-01-09 23:59 | disposition home or self-care (01) ==
LOC: INF 08:00
PROVIDERS: PCP Internal Medicine; Visit Provider Internal Medicine Hematology & Oncology
DX: C92.11 Chronic myeloid leukemia, BCR/ABL-positive, in remission (principal); Z45.2 Encounter for adjustment and management of vascular access device
CPT/HCPCS: 36591; 96523; 85025

== ENCOUNTER 2021-01-26 02:32 | Outpatient (RCR) | payer OTHER, SELFPAY ==
[2021-01-26] MEDS: Heparin 500 UNITS/5 ML SYRINGE IV (08:12)
[2021-01-26] MEDS: Normal Saline Flush 10 ML SYR IVP (08:12)
[2021-01-26 08:18] LABS: Abs Immature Grans 0.02 10^3/uL (0.0-0.06); Absolute Basophil Count 0.07 10^3/uL (0.0-0.2); Absolute Eosinophil Count 0.22 10^3/uL (0.0-0.7); Absolute Lymphocyte Count 0.89 10^3/uL (1.2-3.4); Absolute Monocyte Count 1.69 10^3/uL (0.1-0.8); Absolute Neutrophil Count 1.94 10^3/uL (1.2-6.7); Basophils % 1.4; Eosinophils % 4.6; HCT 42.3 % (40.0-50.0); Immature Grans % 0.4; Lymphocytes % 18.4; MCH 33.5 pg (27.0-33.0); MCHC 33.1 % (32.0-36.0); MCV 101.2 fL (80-95); MPV 9.3 fL (8.0-11.0); Neutrophils % 40.2; Nucleated RBC 0 %; Platelet Count 282 10^3/uL (130-400); RBC 4.18 10^6/uL (4.36-5.78); RDW 14.3 % (11.8-14.1); RDW-SD 53.7 fL; WBC 4.83 10^3/uL (4.4-10.8)
[2021-01-26 08:26] LABS: Anion Gap 5.2 mmol/L (3-11); BUN 19 mg/dL (7-18); CO2 29.8 mmol/L (21.0-32.0); CREATININE 0.8 mg/dL (0.70-1.30); Calcium 9.8 mg/dL (8.5-10.1); Chloride 106 mmol/L (98-107); Glucose 101 mg/dL (74-106); Potassium 3.9 mmol/L (3.5-5.1); Sodium 141 mmol/L (136-145)
[2021-01-26 08:33] LABS: Diff Comment Diff Reviewed; RBC Morphology Normal
== END 2021-02-09 23:59 | disposition home or self-care (01) ==
LOC: INF 02:32
PROVIDERS: PCP Internal Medicine; Visit Provider Internal Medicine Hematology & Oncology
DX: C92.11 Chronic myeloid leukemia, BCR/ABL-positive, in remission (principal); Z45.2 Encounter for adjustment and management of vascular access device
CPT/HCPCS: 36591; 80048; 85025

== ENCOUNTER 2021-02-23 03:31 | Outpatient (RCR) | payer OTHER, SELFPAY ==
[2021-02-23] MEDS: Normal Saline Flush 10 ML SYR IVP (07:56)
[2021-02-23] MEDS: Heparin 500 UNITS/5 ML SYRINGE IV (07:56)
[2021-02-23 08:29] LABS: Abs Immature Grans 0.02 10^3/uL (0.0-0.06); Absolute Basophil Count 0.07 10^3/uL (0.0-0.2); Absolute Eosinophil Count 0.19 10^3/uL (0.0-0.7); Absolute Lymphocyte Count 1.09 10^3/uL (1.2-3.4); Absolute Monocyte Count 1.37 10^3/uL (0.1-0.8); Absolute Neutrophil Count 2.42 10^3/uL (1.2-6.7); Basophils % 1.4; Eosinophils % 3.7; HCT 41.9 % (40.0-50.0); HGB 14.3 g/dL (13.5-17.5); Immature Grans % 0.4; Lymphocytes % 21.1; MCH 33.3 pg (27.0-33.0); MCHC 34.1 % (32.0-36.0); MCV 97.4 fL (80-95); Monocytes % 26.6; Neutrophils % 46.8; Nucleated RBC 0 %; Platelet Count 290 10^3/uL (130-400); RDW 14.1 % (11.8-14.1); RDW-SD 50.4 fL; WBC 5.16 10^3/uL (4.4-10.8)
== END 2021-03-12 23:59 | disposition home or self-care (01) ==
LOC: INF 03:31
PROVIDERS: PCP Internal Medicine; Visit Provider Internal Medicine Hematology & Oncology
DX: C92.11 Chronic myeloid leukemia, BCR/ABL-positive, in remission (principal); Z45.2 Encounter for adjustment and management of vascular access device
CPT/HCPCS: 36591; 85025

== ENCOUNTER 2021-03-23 01:48 | Outpatient (RCR) | payer OTHER, SELFPAY ==
[2021-03-23] MEDS: Normal Saline Flush 10 ML SYR IVP (07:56)
[2021-03-23] MEDS: Heparin 500 UNITS/5 ML SYRINGE IV (07:56)
[2021-03-23 07:58] LABS: HCT 42.6 % (40.0-50.0); HGB 14.4 g/dL (13.5-17.5); MCHC 33.8 % (32.0-36.0); MCV 97.7 fL (80-95); MPV 9.9 fL (8.0-11.0); Platelet Count 298 10^3/uL (130-400); RBC 4.36 10^6/uL (4.36-5.78); RDW 14.6 % (11.8-14.1); RDW-SD 52.8 fL; WBC 5.07 10^3/uL (4.4-10.8)
[2021-03-23 08:01] LABS: Anion Gap 6.6 mmol/L (3-11); BUN 20 mg/dL (7-18); CO2 27.4 mmol/L (21.0-32.0); CREATININE 0.8 mg/dL (0.70-1.30); Calcium 9.4 mg/dL (8.5-10.1); Chloride 106 mmol/L (98-107); Glucose 94 mg/dL (74-106); Potassium 4.2 mmol/L (3.5-5.1); Sodium 140 mmol/L (136-145)
== END 2021-04-09 23:59 | disposition home or self-care (01) ==
LOC: INF 01:48
PROVIDERS: PCP Internal Medicine; Visit Provider Internal Medicine Hematology & Oncology
DX: C92.11 Chronic myeloid leukemia, BCR/ABL-positive, in remission (principal); Z45.2 Encounter for adjustment and management of vascular access device
CPT/HCPCS: 36591; 80048; 85027

== ENCOUNTER 2021-04-20 03:21 | Outpatient (RCR) | payer OTHER, SELFPAY ==
[2021-04-20] MEDS: Normal Saline Flush 10 ML SYR IVP (08:09)
[2021-04-20] MEDS: Heparin 500 UNITS/5 ML SYRINGE IV (08:09)
[2021-04-20 08:36] LABS: Abs Immature Grans 0.01 10^3/uL (0.0-0.06); Absolute Basophil Count 0.06 10^3/uL (0.0-0.2); Absolute Eosinophil Count 0.13 10^3/uL (0.0-0.7); Absolute Monocyte Count 1.24 10^3/uL (0.1-0.8); Absolute Neutrophil Count 2.66 10^3/uL (1.2-6.7); Basophils % 1.2; Eosinophils % 2.6; HCT 43.1 % (40.0-50.0); HGB 14.5 g/dL (13.5-17.5); Immature Grans % 0.2; MCH 32.8 pg (27.0-33.0); MCHC 33.6 % (32.0-36.0); MCV 97.5 fL (80-95); MPV 9.6 fL (8.0-11.0); Monocytes % 24.8; Neutrophils % 53.2; Nucleated RBC 0 %; Platelet Count 293 10^3/uL (130-400); RBC 4.42 10^6/uL (4.36-5.78); RDW 15.1 % (11.8-14.1); RDW-SD 54.4 fL
== END 2021-05-10 23:59 | disposition home or self-care (01) ==
LOC: INF 03:21
PROVIDERS: PCP Internal Medicine; Visit Provider Internal Medicine Hematology & Oncology
DX: C92.11 Chronic myeloid leukemia, BCR/ABL-positive, in remission (principal); Z45.2 Encounter for adjustment and management of vascular access device
CPT/HCPCS: 36591; 85025

== ENCOUNTER 2021-07-27 01:05 | Outpatient (RCR) | payer OTHER, SELFPAY ==
[2021-07-27] MEDS: Normal Saline Flush 10 ML SYR IVP (08:02)
[2021-07-27] MEDS: Heparin 500 UNITS/5 ML SYRINGE IV (08:02)
== END 2021-08-09 23:59 | disposition home or self-care (01) ==
LOC: INF 01:05
PROVIDERS: PCP Internal Medicine; Visit Provider Physician Assistant Medical
DX: Z45.2 Encounter for adjustment and management of vascular access device (principal)
CPT/HCPCS: 96523

== ENCOUNTER 2021-09-08 01:24 | Emergency (ER) | payer OTHER, SELFPAY ==
[2021-09-08 01:57] VITALS: PULSE 63; RESP 18; TEMP 36.6; O2SAT 96
[2021-09-08 02:07] VITALS: BP 113/64
[2021-09-08] MEDS: Lidocaine 2% Jelly 6 ML SYR (02:11)
--- NOTE | 2021-09-08 02:16 | ED.GENADUL_ITS ---
Discharge Plan Disposition Patient Disposition: HOME Condition: Stable Discharge Details Clinical Impression: Acute urinary retention Primary Care Provider: Vero Gutiérrez ED Provider: Braydon Souza Home Meds and New Rx's Prescriptions: Continued Azothyoprin PO DAILY terazosin 2 MG capsule 2 mg PO DAILY ondansetron 4 MG tablet,disintegrating 4 mg PO PRN PRN quetiapine 25 mg Tablet 25 mg PO HS atorvastatin 40 mg Tablet 40 mg PO DAILY lisinopril 10 mg Tablet 10 mg PO DAILY sertraline 25 mg Tablet 12.5 mg PO DAILY Imbruvica 140 mg Tablet 140 mg PO DAILY Discharge Instructions Instructions: [facility] Catheter Placement and Care (ED) Additional Instructions: follow up with your urologist within 1-2 weeks if you feel more ill, have severe pain or fevers return to the emergency department Medical Decision Making 71 yo male with hx of cll, htn, bph, kidney stones comes in with complaint of inability to urinate. He states he had a stent placed in his left and right ureters at the [facility] for kidney stones which he states happens frequently. He had the stents removed in the OR yesterday and was discharged but after getting home was unable to urinate which states happens to him frequently as well and has had numerous preston's in the past. He arrived having fullness and pain in the suprapubic region, denies fevers, chills, dysuria. Suspect urinary retention from bph or post op, will have nursing attempt preston placement nursing able to pass preston and draining bloody urine that is clearing now, he states he chronically has bloody urine due to persistent kidney stones, denies any flank pain or other symptoms to suggest acute ureter stone. He is requesting d/c as this is routine for him and he has no concerns managing a preston. Feels much better with the preston in now. Will obtain ua and if negative d/c and have him f/u with his urologist urine positive for nitrites. He remains stable and feels well, no cva tenderness. Discussed with pt and he already has bactrim from his urologist that he will start taking and doesn't require an antibiotic. he will f/u with urology and return precautions given Differential Diagnosis Differential Diagnosis: bph, post op urinary retention Medical Records Medical records reviewed: Yes I reviewed the patient's medical records. Lab Data Lab results reviewed: Yes I reviewed the patient's lab results. HPI General Mode of arrival: ambulatory . Date/Time Provider Initiated Documentation: 09/08/21 01:31 . Limitations to Documentation: no limitations . Information obtained by: patient . History of Present Illness 71 year old M presents to the emergency department with the chief complaint of difficulty urinating, described as moderate, Patient started experiencing this hour(s) (6) and it has been constant. No relieving factors improve symptom(s), No exacerbating factors reported . Patient did receive the following treatments prior to arrival, none Related Data Home Medications Medication Instructions Recorded Confirmed Azothyoprin PO DAILY 12/19/13 04/20/14 terazosin 2 mg capsule 2 mg PO DAILY 12/19/13 08/18/18 ondansetron 4 mg disintegrating 4 mg PO PRN PRN 04/21/16 08/18/18 tablet atorvastatin 40 mg tablet 40 mg PO DAILY 08/18/18 08/18/18 ibrutinib 140 mg tablet (Imbruvica) 140 mg PO DAILY 08/18/18 08/18/18 lisinopril 10 mg tablet 10 mg PO DAILY 08/18/18 08/18/18 quetiapine 25 mg tablet 25 mg PO HS 08/18/18 08/18/18 sertraline 25 mg tablet 12.5 mg PO DAILY 08/18/18 08/18/18 Allergies Allergy/AdvReac Type Severity Reaction Status Date / Time diphenhydramine HCl Allergy Unverified 04/21/16 05:33 [From Benadryl] prochlorperazine Allergy Unverified 09/08/21 01:56 [From Compazine] silver Allergy Unverified 09/08/21 01:57 [From Tegaderm AG Mesh] General Stated Complaint: Urinary TOBY: 3 Review of Systems All systems reviewed & are unremarkable except as noted in HPI and below Constitutional Constitutional: Denies chills, Denies fever(s) and Denies weakness Eyes Eyes: Denies loss of vision ENT Ears, Nose, Mouth, and Throat: Denies change in voice Cardiovascular Cardiovascular: Denies chest pain and Denies dyspnea Respiratory Respiratory: Denies cough and Denies dyspnea Gastrointestinal Gastrointestinal: Denies vomiting Genitourinary Genitourinary: Denies dysuria Neurologic Neurologic: Denies loss of vision and Denies weakness PFSH All Active Problems (Updated 09/08/21 @ 02:24 by Braydon Souza MD) Acute urinary retention (Acute) Social History Smoking/Tobacco Use Status: Never Smoking risk assessment performed?: Yes Alcohol Intake: never Drug use: Never Do you feel safe at home: Yes Do you feel safe in your relationship?: Yes Exam Const General: no acute distress Orientation: alert HENMT Head: normal to inspection Ears: external ears normal General nose exam: external nose normal Mouth: moist mucous membranes Eyes General: appearance normal, both eyes and all related structures Neck Neck: normal visual inspection Resp Effort & Inspection: normal respiratory effort and able to speak in complete sentences Cardio Rate: regular rate Skin General skin exam: no rashes or lesions noted Neuro General: patient alert and patient oriented x3 Extrem General: normal to inspection Psych Mental Status: mental status grossly normal Course Vital Signs Vital signs: Vital Signs Temperature 36.6 C 09/08/21 01:57 Pulse 63 09/08/21 01:57 Respiratory Rate 18 09/08/21 01:57 Pulse Oximetry 96 09/08/21 01:57 Temperature 36.6 C 09/08/21 01:57 Temperature Source Temporal Artery Scan 09/08/21 01:57 Pulse 63 09/08/21 01:57 Respiratory Rate 18 09/08/21 01:57 Blood Pressure 113/64 09/08/21 02:07 Pulse Oximetry 96 09/08/21 01:57 Oxygen Delivery Method Room Air 09/08/21 01:57 Oxygen Flow Rate 0 09/08/21 01:57 Pain Level 10 09/08/21 02:07 Lab/Test Results Lab/Test Results: 09/08/21 02:13 Urine - Cath [facility] Indwelling Urine Culture - Pending
[2021-09-08 02:20] LABS: Bilirubin Moderate (Negative); Blood Large (Negative); Clarity Sl Cloudy (Clear); Glucose 100 mg/dL (Negative); Ketones Trace mg/dL (Negative); Leukocyte Esterase Large (Negative); Nitrite Positive (Negative)
[2021-09-08 02:27] LABS: C & S Indicated? C&S Done As Ordered; RBC >50 HPF (0-2)
== END 2021-09-08 02:49 | disposition home or self-care (01) ==
LOC: ER 02:30
PROVIDERS: Emergency Provider Emergency Medicine; PCP Internal Medicine
DX: R33.9 Retention of urine, unspecified (principal); R31.9 Hematuria, unspecified; R82.998 Other abnormal findings in urine
CPT/HCPCS: 51702; 99283; 81003; 81015; 87086; 99282

== ENCOUNTER 2021-10-05 00:53 | Outpatient (RCR) | payer OTHER, SELFPAY ==
[2021-10-05] MEDS: Heparin 500 UNITS/5 ML SYRINGE IV (08:05)
[2021-10-05] MEDS: Normal Saline Flush 10 ML SYR IVP (08:05)
== END 2021-10-10 23:59 | disposition home or self-care (01) ==
LOC: INF 00:53
PROVIDERS: PCP Internal Medicine; Visit Provider Internal Medicine Hematology & Oncology
DX: Z45.2 Encounter for adjustment and management of vascular access device (principal)
CPT/HCPCS: 96523

== ENCOUNTER 2021-11-02 00:32 | Outpatient (RCR) | payer OTHER, SELFPAY ==
[2021-11-02] MEDS: Normal Saline Flush 10 ML SYR IVP (08:37)
[2021-11-02] MEDS: Heparin 500 UNITS/5 ML SYRINGE IV (08:37)
== END 2021-11-09 23:59 | disposition home or self-care (01) ==
LOC: INF 00:32
PROVIDERS: PCP Internal Medicine; Visit Provider Internal Medicine Hematology & Oncology
DX: Z45.2 Encounter for adjustment and management of vascular access device (principal)
CPT/HCPCS: 96523

== ENCOUNTER 2021-12-06 08:25 | Outpatient (RCR) | payer OTHER, SELFPAY ==
[2021-12-06] MEDS: Heparin 500 UNITS/5 ML SYRINGE IV (14:16)
[2021-12-06] MEDS: Normal Saline Flush 10 ML SYR IVP (14:16)
== END 2021-12-10 23:59 | disposition home or self-care (01) ==
LOC: INF 08:25
PROVIDERS: PCP Internal Medicine; Visit Provider Internal Medicine Hematology & Oncology
DX: Z45.2 Encounter for adjustment and management of vascular access device (principal)
CPT/HCPCS: 96523

== ENCOUNTER 2022-01-04 00:57 | Outpatient (RCR) | payer OTHER, SELFPAY ==
[2022-01-04] MEDS: Heparin 500 UNITS/5 ML SYRINGE IV (08:12)
[2022-01-04] MEDS: Normal Saline Flush 10 ML SYR IVP (08:12)
[2022-01-04 08:22] LABS: Abs Immature Grans 0.02 10^3/uL (0.0-0.06); Absolute Basophil Count 0.09 10^3/uL (0.0-0.2); Absolute Eosinophil Count 0.15 10^3/uL (0.0-0.7); Absolute Lymphocyte Count 2.24 10^3/uL (1.2-3.4); Absolute Neutrophil Count 2.69 10^3/uL (1.2-6.7); Basophils % 1.4; Eosinophils % 2.3; HCT 44.5 % (40.0-50.0); HGB 15.1 g/dL (13.5-17.5); Immature Grans % 0.3; MCH 33.1 pg (27.0-33.0); MCHC 33.9 % (32.0-36.0); MCV 98 fL (80-95); MPV 9.7 fL (8.0-11.0); Monocytes % 21.2; Neutrophils % 40.8; Platelet Count 277 10^3/uL (130-400); RBC 4.56 10^6/uL (4.36-5.78); RDW-SD 54.5 fL; WBC 6.59 10^3/uL (4.4-10.8)
== END 2022-01-09 23:59 | disposition home or self-care (01) ==
LOC: INF 00:57
PROVIDERS: PCP Internal Medicine; Visit Provider Internal Medicine Hematology & Oncology
DX: Z45.2 Encounter for adjustment and management of vascular access device (principal); D59.9 Acquired hemolytic anemia, unspecified
CPT/HCPCS: 36591; 96523; 85025

== ENCOUNTER 2022-01-30 12:17 | Outpatient (RCR) | payer OTHER, SELFPAY ==
[2022-01-30] MEDS: Heparin 500 UNITS/5 ML SYRINGE (11:42)
[2022-01-30] MEDS: Normal Saline Flush 10 ML SYR IVP (12:20)
== END 2022-02-09 23:59 | disposition home or self-care (01) ==
LOC: INF 12:17
PROVIDERS: PCP Internal Medicine; Visit Provider Internal Medicine Hematology & Oncology
DX: Z45.2 Encounter for adjustment and management of vascular access device (principal)
CPT/HCPCS: 96523

== ENCOUNTER 2022-02-28 03:49 | Outpatient (RCR) | payer OTHER, SELFPAY ==
[2022-02-28] MEDS: Normal Saline Flush 10 ML SYR IVP (08:12)
[2022-02-28] MEDS: Heparin 500 UNITS/5 ML SYRINGE IV (08:12)
[2022-02-28 08:22] LABS: Abs Immature Grans 0.04 10^3/uL (0.0-0.06); Absolute Basophil Count 0.09 10^3/uL (0.0-0.2); Absolute Eosinophil Count 0.28 10^3/uL (0.0-0.7); Absolute Lymphocyte Count 1.76 10^3/uL (1.2-3.4); Absolute Monocyte Count 1.54 10^3/uL (0.1-0.8); Basophils % 1.3; Eosinophils % 4.1; HCT 45.4 % (40.0-50.0); HGB 15.7 g/dL (13.5-17.5); Immature Grans % 0.6; Lymphocytes % 25.5; MCH 33.4 pg (27.0-33.0); MCHC 34.6 % (32.0-36.0); MCV 97 fL (80-95); MPV 9.8 fL (8.0-11.0); Monocytes % 22.3; Neutrophils % 46.2; Platelet Count 322 10^3/uL (130-400); RDW 14.8 % (11.8-14.1); RDW-SD 53.3 fL; WBC 6.91 10^3/uL (4.4-10.8)
[2022-02-28 08:51] LABS: Diff Comment Agrees w/ Instrument; RBC Morphology Normal
== END 2022-03-12 23:59 | disposition home or self-care (01) ==
LOC: INF 03:49
PROVIDERS: PCP Internal Medicine; Visit Provider Internal Medicine Hematology & Oncology
DX: C92.11 Chronic myeloid leukemia, BCR/ABL-positive, in remission (principal)
CPT/HCPCS: 36591; 85025

== ENCOUNTER 2022-03-20 11:21 | Emergency (ER) | payer OTHER, SELFPAY ==
[2022-03-20] VITALS (22 sets, daily range): BP systolic 138–177; BP diastolic 69–95; PULSE 56–89; RESP 9–35; TEMP 36.6; O2SAT 92–99
--- NOTE | 2022-03-20 11:36 | ED.GENADUL_ITS ---
Discharge Plan Disposition Patient Disposition: Home Condition: Stable Discharge Details Clinical Impression: Kidney stone Primary Care Provider: Vero Gutiérrez ED Provider: Braydon Souza Home Meds and New Rx's Prescriptions: Continued Azothyoprin 2 PO DAILY terazosin 2 MG capsule 2 mg PO DAILY ondansetron 4 MG tablet,disintegrating 4 mg PO PRN PRN quetiapine 25 mg Tablet 25 mg PO HS lisinopril 10 mg Tablet 10 mg PO DAILY sertraline 25 mg Tablet 12.5 mg PO DAILY Imbruvica 140 mg Tablet 140 mg PO DAILY Discharge Instructions Instructions: Kidney Stones (ED) Additional Instructions: Take your antibiotic twice daily for one week follow up with your urologist as soon as possible if you feel more ill, have severe worsening pain or fevers return to the emergency department Medical Decision Making 71 yo male with hx of bph, htn, prior kidney stones, comes in with right flank pain for 5 days that significantly worsened today. He denies fevers, chills, chest pain, dyspnea, abdominal pain. HAs had nausea without vomiting. He arrives stable though appears in pain. He localizes the pain to the right lower back, no cva tenderness, no abdominal tenderness, denies testicle pain. Suspect kidney stone, will obtain cbc, cmp, ua and ct renal colic. blood work shows no emergent findings, ua positive for nitrites similar to his last urinalysis which was negative for growth on culture. CT shows 1mm stone on the right and approximately 4mm stone on the left both at the uvj on ct. Pt feels significantly better and has no pain now, did urinate with stones in it. No fevers, no leukocytosis so is not septic. He feels well enough for d/c and states he has bactrim at home he can take so will have him take one of these twice a day. He has a urologist at the [facility] he can follow up with, return precautions given Differential Diagnosis Differential Diagnosis: kidney stone, muscle spasm, back strain HPI General Mode of arrival: ambulatory . Date/Time Provider Initiated Documentation: 03/20/22 11:26 . Limitations to Documentation: no limitations . Information obtained by: patient . History of Present Illness 71 year old M presents to the emergency department with the chief complaint of right flank pain, described as moderate, Quality is described as aching and sharp, Patient started experiencing this day(s) (5) and it has been constant. No relieving factors improve symptom(s), No exacerbating factors reported . Patient notes other (nausea, no vomiting); denies fever/chills. Patient did receive the following treatments prior to arrival, none Related Data Home Medications Medication Instructions Recorded Confirmed Azothyoprin 2 PO DAILY 12/19/13 04/20/14 terazosin 2 mg capsule 2 mg PO DAILY 12/19/13 03/20/22 ondansetron 4 mg disintegrating 4 mg PO PRN PRN 04/21/16 03/20/22 tablet ibrutinib 140 mg tablet (Imbruvica) 140 mg PO DAILY 08/18/18 03/20/22 lisinopril 10 mg tablet 10 mg PO DAILY 08/18/18 03/20/22 quetiapine 25 mg tablet 25 mg PO HS 08/18/18 03/20/22 sertraline 25 mg tablet 12.5 mg PO DAILY 08/18/18 03/20/22 Allergies Allergy/AdvReac Type Severity Reaction Status Date / Time diphenhydramine HCl Allergy Unverified 03/20/22 11:30 [From Benadryl] prochlorperazine Allergy Unverified 03/20/22 11:30 [From Compazine] silver Allergy Unverified 03/20/22 11:30 [From Tegaderm AG Mesh] General Stated Complaint: FlankPain TOBY: 3 Review of Systems All systems reviewed & are unremarkable except as noted in HPI and below Constitutional Constitutional: Denies chills, Denies fever(s) and Denies weakness Cardiovascular Cardiovascular: Denies chest pain and Denies dyspnea Respiratory Respiratory: Denies cough and Denies dyspnea Gastrointestinal Gastrointestinal: Denies abdominal pain and Denies vomiting Genitourinary Genitourinary: Denies dysuria Musculoskeletal Musculoskeletal: Denies joint swelling Integumentary/Breasts Skin/Breast: Denies rash Neurologic Neurologic: Denies weakness PFSH All Active Problems (Updated 03/20/22 @ 13:38 by Braydon Souza MD) Kidney stone (Chronic) Social History Smoking/Tobacco Use Status: Never Smoking risk assessment performed?: Yes Alcohol Intake: never Drug use: Never Substance use type: does not use Do you feel safe at home: Yes Do you feel safe in your relationship?: Yes Exam Const Orientation: alert HENOR Head: normal to inspection Ears: external ears normal General nose exam: external nose normal Mouth: moist mucous membranes Eyes General: appearance normal, both eyes and all related structures Neck Neck: normal visual inspection Resp Effort & Inspection: normal respiratory effort and able to speak in complete sentences Cardio Rate: regular rate GI Palpation: soft and nontender Back/Spine/Pelvis Back: no CVA tenderness Skin General skin exam: no rashes or lesions noted Neuro General: patient alert and patient oriented x3 Extrem General: normal to inspection Psych Mental Status: mental status grossly normal Course Vital Signs Vital signs: Vital Signs Temperature 36.6 C 03/20/22 11:27 Pulse 89 03/20/22 11:27 Respiratory Rate 17 03/20/22 11:27 Blood Pressure 144/95 H 03/20/22 11:27 Pulse Oximetry 97 03/20/22 11:27 Temperature 36.6 C 03/20/22 11:27 Pulse 89 03/20/22 11:27 Respiratory Rate 17 03/20/22 11:27 Respiratory Effort 03/20/22 11:29 Blood Pressure 144/95 H 03/20/22 11:27 Blood Pressure Position Sitting 03/20/22 11:27 Pulse Oximetry 97 03/20/22 11:27 Oxygen Delivery Method Room Air 03/20/22 11:27 Oxygen Flow Rate 0 03/20/22 11:27 Pain Level 10 03/20/22 11:32
[2022-03-20 11:49] LABS: Bilirubin Negative (Negative); Blood Moderate (Negative); Clarity Clear (Clear); Glucose 100 mg/dL (Negative); Ketones Trace mg/dL (Negative); Leukocyte Esterase Negative (Negative); Nitrite Positive (Negative); Specific Gravity 1.015 (1.005-1.025)
[2022-03-20 11:55] LABS: Bacteria Rare HPF (Negative); C & S Indicated? No; Casts Negative LPF (Negative); Crystals Negative HPF (Negative); Epithelial Cells Rare HPF (Negative); Mucus Trace (Negative); WBC 0-2 HPF (0-5)
[2022-03-20 11:56] LABS: Source Nasal/Nares
[2022-03-20] MEDS: Normal Saline 1,000 ML 1000 ML IV (12:20)
[2022-03-20] MEDS: Ondansetron 4 MG/2 ML VIAL IVP (12:20)
[2022-03-20 12:29] LABS: Abs Immature Grans 0.02 10^3/uL (0.0-0.06); Absolute Basophil Count 0.01 10^3/uL (0.0-0.2); Absolute Lymphocyte Count 0.94 10^3/uL (1.2-3.4); Absolute Monocyte Count 0.62 10^3/uL (0.1-0.8); Absolute Neutrophil Count 5.15 10^3/uL (1.2-6.7); Basophils % 0.1; HCT 41.5 % (40.0-50.0); HGB 14.4 g/dL (13.5-17.5); Immature Grans % 0.3; Lymphocytes % 13.9; MCH 33.6 pg (27.0-33.0); MCHC 34.7 % (32.0-36.0); MCV 97 fL (80-95); MPV 9.8 fL (8.0-11.0); Monocytes % 9.2; Neutrophils % 76.5; Platelet Count 265 10^3/uL (130-400); RBC 4.28 10^6/uL (4.36-5.78); RDW 14.8 % (11.8-14.1); RDW-SD 53.2 fL; WBC 6.74 10^3/uL (4.4-10.8)
[2022-03-20 12:42] LABS: ALT 26 U/L (16-63); AST 24 U/L (15-37); Albumin 3.9 g/dL (3.4-5.0); Alkaline Phosphatase 67 U/L (46-116); Anion Gap 7.5 mmol/L (3-11); BUN 20 mg/dL (7-18); Bilirubin, Total 0.6 mg/dL (0.2-1.0); CO2 26.5 mmol/L (21.0-32.0); Calcium 9.7 mg/dL (8.5-10.1); Chloride 106 mmol/L (98-107); Estimated GFR 80.97 (mL/min/1.73m2); Glucose 129 mg/dL (74-106); Lipase 23 U/L (16-77); Magnesium 1.9 mg/dL (1.8-2.4); Potassium 3.9 mmol/L (3.5-5.1); Sodium 140 mmol/L (136-145); Total Protein 6.2 g/dL (6.4-8.2)
[2022-03-20 12:42] LABS: COVID-19 PCR Negative (Negative)
--- NOTE | 2022-03-20 13:01 | DI.CT_ITS ---
Exam(s) CT RENAL COLIC WO EXAM: CT RENAL COLIC WO CLINICAL HISTORY: right flank pain. TECHNIQUE: Imaging Protocol: Axial computed tomography images with coronal and sagittal reformatted images were created and reviewed. COMPARISON: CT CT ABDOMEN PELVIS W from 08/18/2018 FINDINGS: ABDOMEN: Lung Bases: There are marked coronary artery calcifications present. Liver: Normal density. No measurable mass. Gallbladder and biliary tract: Status post cholecystectomy. No biliary ductal dilatation. Pancreas: Normal density, no abnormal calcifications or inflammatory process. Spleen: Status post splenectomy. Kidneys: Normal size, contour and axis.There is right nephrolithiasis. There is mild left hydronephr osis secondary to a 1-2 mm stone at the right UVJ. There is left nephrolithiasis. There is mild to moderate dilatation of the left renal collecting system. There is a 4 mm stone seen near the ostia o f the left UVJ in the bladder which may be obstructing. Bilateral renal cysts are again seen. Adrenal glands: No mass is seen. Lymph nodes: Within normal limits. Abdominal Aorta: Abdominal portion non-dilated. Atherosclerosis is present. PELVIS: Bladder:Bladder stones are present in addition to the obstructing UVJ stones. Bowel: No obstruction or bowel wall thickening. There is diverticulosis of the colon but no evidence of acute diverticulitis. There is no evidence of bowel obstruction. No evidence of appendicitis. Peritoneal cavity: No ascites, collection or mesenteric inflammatory response. No free air. Reproductive organs: Unremarkable as visualized. Bones: Within normal limits. Soft Tissues: Within normal limits. IMPRESSION: 1. There is a 1-2 mm stone at the right UVJ causing mild hydronephrosis. 2. There is a 4 mm stone seen near the ostia of the left UVJ in the bladder which appears to cause mi [id number] left hydronephrosis. 3. Bilateral nephrolithiasis. 4. Several urinary bladder stones. 5. Initial findings were discussed with the emergency department at 1:20 p.m. on 03/20/2022. RADIATION DOSE DELIVERED: 859.9mGy.cm Total DLP DATA REPOSITORY: All CT scans at this facility are submitted to the National Radiology Data Registry (NRDR) Dose Index Registry (DIR) with the [employer] (A[employer]). RADIATION OPTIMIZATION: All CT scans at this facility use at least one of these dose optimization te chniques: automated exposure control; mA and/or kV adjustment per patient size (includes targeted exa ms where dose is matched to clinical indication); or iterative reconstruction.
[2022-03-20] MEDS: Ketorolac 15 MG/ML VIAL IVP (13:08)
[2022-03-20] MEDS: Heparin 500 UNITS/5 ML SYRINGE (13:50)
== END 2022-03-20 13:57 | disposition home or self-care (01) ==
PROVIDERS: Emergency Provider Emergency Medicine; PCP Internal Medicine
DX: N13.2 Hydronephrosis with renal and ureteral calculous obstruction (principal); I10 Essential (primary) hypertension; Z20.822 Contact with and (suspected) exposure to COVID-19
CPT/HCPCS: 80053; 83690; 87635; 96361; 96374; 96375; 99284; 74176; 81003; 81015; 83735; 85025; 87086; J1885; J2405

== ENCOUNTER 2022-04-26 01:17 | Outpatient (RCR) | payer OTHER, SELFPAY ==
[2022-04-26] MEDS: Heparin 500 UNITS/5 ML SYRINGE IV (08:06)
[2022-04-26] MEDS: Normal Saline Flush 10 ML SYR IVP (08:06)
[2022-04-26 08:36] LABS: Abs Immature Grans 0.04 10^3/uL (0.0-0.06); Absolute Basophil Count 0.06 10^3/uL (0.0-0.2); Absolute Eosinophil Count 0.09 10^3/uL (0.0-0.7); Absolute Neutrophil Count 3.21 10^3/uL (1.2-6.7); Basophils % 0.9; Eosinophils % 1.3; HCT 44.4 % (40.0-50.0); HGB 15.6 g/dL (13.5-17.5); Immature Grans % 0.6; Lymphocytes % 34.3; MCH 34.3 pg (27.0-33.0); MCHC 35.1 % (32.0-36.0); MCV 98 fL (80-95); MPV 10.1 fL (8.0-11.0); Monocytes % 17.1; Neutrophils % 45.8; Platelet Count 321 10^3/uL (130-400); RBC 4.55 10^6/uL (4.36-5.78); RDW 15.4 % (11.8-14.1); RDW-SD 55.5 fL
== END 2022-05-10 23:59 | disposition home or self-care (01) ==
LOC: INF 01:17
PROVIDERS: PCP Internal Medicine; Visit Provider Internal Medicine Hematology & Oncology
DX: C92.11 Chronic myeloid leukemia, BCR/ABL-positive, in remission (principal)
CPT/HCPCS: 36591; 85025

== ENCOUNTER 2022-05-27 01:34 | Outpatient (RCR) | payer OTHER, SELFPAY ==
[2022-05-27] MEDS: Heparin 500 UNITS/5 ML SYRINGE IV (07:30)
[2022-05-27] MEDS: Normal Saline Flush 10 ML SYR IVP (07:30)
== END 2022-06-09 23:59 | disposition home or self-care (01) ==
LOC: INF 01:34
PROVIDERS: PCP Internal Medicine; Visit Provider Internal Medicine Hematology & Oncology
DX: Z45.2 Encounter for adjustment and management of vascular access device (principal)
CPT/HCPCS: 96523

== ENCOUNTER 2022-06-28 01:44 | Outpatient (RCR) | payer OTHER, SELFPAY ==
[2022-06-28] MEDS: Normal Saline Flush 10 ML SYR IVP (08:24)
[2022-06-28] MEDS: Heparin 500 UNITS/5 ML SYRINGE IV (08:24)
== END 2022-07-10 23:59 | disposition home or self-care (01) ==
LOC: INF 01:44
PROVIDERS: PCP Internal Medicine; Visit Provider Internal Medicine Hematology & Oncology
DX: Z45.2 Encounter for adjustment and management of vascular access device (principal)
CPT/HCPCS: 96523

== ENCOUNTER 2022-07-26 01:46 | Outpatient (RCR) | payer OTHER, SELFPAY ==
[2022-07-26] MEDS: Normal Saline Flush 10 ML SYR IVP (08:21)
[2022-07-26] MEDS: Heparin 500 UNITS/5 ML SYRINGE IV (08:22)
[2022-07-26 08:34] LABS: HCT 43.1 % (40.0-50.0); HGB 14.8 g/dL (13.5-17.5); MCH 33.9 pg (27.0-33.0); MCHC 34.3 % (32.0-36.0); MCV 99 fL (80-95); MPV 9.6 fL (8.0-11.0); Platelet Count 280 10^3/uL (130-400); RBC 4.36 10^6/uL (4.36-5.78); RDW-SD 51.8 fL; WBC 5.68 10^3/uL (4.4-10.8)
== END 2022-08-09 23:59 | disposition home or self-care (01) ==
LOC: INF 01:46
PROVIDERS: PCP Internal Medicine; Visit Provider Internal Medicine Hematology & Oncology
DX: C94.80 Other specified leukemias not having achieved remission (principal)
CPT/HCPCS: 36591; 85027; 96523

== ENCOUNTER 2022-08-23 01:26 | Outpatient (RCR) | payer OTHER, SELFPAY ==
[2022-08-23] MEDS: Heparin 500 UNITS/5 ML SYRINGE IV (12:27)
[2022-08-23] MEDS: Normal Saline Flush 10 ML SYR IVP (12:27)
== END 2022-09-09 23:59 | disposition home or self-care (01) ==
LOC: INF 01:26
PROVIDERS: PCP Internal Medicine; Visit Provider Internal Medicine Hematology & Oncology
DX: Z45.2 Encounter for adjustment and management of vascular access device (principal)
CPT/HCPCS: 36591; 96523

== ENCOUNTER 2022-09-27 08:00 | Outpatient (RCR) | payer OTHER, SELFPAY ==
[2022-09-27] MEDS: Normal Saline Flush 10 ML SYR IVP (08:08)
[2022-09-27] MEDS: Heparin 500 UNITS/5 ML SYRINGE IV (08:08)
== END 2022-10-10 23:59 | disposition home or self-care (01) ==
LOC: INF 08:00
PROVIDERS: PCP Internal Medicine; Visit Provider Internal Medicine Hematology & Oncology
DX: Z45.2 Encounter for adjustment and management of vascular access device (principal)
CPT/HCPCS: 36591; 96523

== ENCOUNTER 2022-10-25 01:05 | Outpatient (RCR) | payer OTHER, SELFPAY ==
[2022-10-25] MEDS: Normal Saline Flush 10 ML SYR IVP (08:46)
[2022-10-25] MEDS: Heparin 500 UNITS/5 ML SYRINGE IV (08:46)
== END 2022-11-09 23:59 | disposition home or self-care (01) ==
LOC: INF 01:05
PROVIDERS: PCP Internal Medicine; Visit Provider Internal Medicine Hematology & Oncology
DX: Z45.2 Encounter for adjustment and management of vascular access device (principal)
CPT/HCPCS: 96523

== ENCOUNTER 2022-11-22 04:08 | Outpatient (RCR) | payer OTHER, SELFPAY ==
[2022-11-22] MEDS: Heparin 500 UNITS/5 ML SYRINGE IV (08:21)
[2022-11-22] MEDS: Normal Saline Flush 10 ML SYR IVP (08:21)
[2022-11-22 08:27] LABS: HCT 43.8 % (40.0-50.0); HGB 14.9 g/dL (13.5-17.5); MCV 97 fL (80-95); MPV 9.8 fL (8.0-11.0); Platelet Count 278 10^3/uL (130-400); RBC 4.51 10^6/uL (4.36-5.78); RDW 13.8 % (11.8-14.1); WBC 6.82 10^3/uL (4.4-10.8)
== END 2022-12-10 23:59 | disposition home or self-care (01) ==
LOC: INF 04:08
PROVIDERS: PCP Internal Medicine; Visit Provider Internal Medicine Hematology & Oncology
DX: C94.80 Other specified leukemias not having achieved remission (principal); Z45.2 Encounter for adjustment and management of vascular access device
CPT/HCPCS: 36591; 85027; 96523

== ENCOUNTER 2022-12-27 01:52 | Outpatient (RCR) | payer OTHER, SELFPAY ==
[2022-12-27] MEDS: Heparin 500 UNITS/5 ML SYRINGE IV (08:00)
[2022-12-27] MEDS: Normal Saline Flush 10 ML SYR IVP (08:00)
== END 2023-01-09 23:59 | disposition home or self-care (01) ==
LOC: INF 01:52
PROVIDERS: PCP Internal Medicine; Visit Provider Internal Medicine Hematology & Oncology
DX: C94.80 Other specified leukemias not having achieved remission (principal); C92.11 Chronic myeloid leukemia, BCR/ABL-positive, in remission
CPT/HCPCS: 96523

== ENCOUNTER 2023-01-24 01:05 | Outpatient (RCR) | payer OTHER, SELFPAY ==
[2023-01-24] MEDS: Heparin 500 UNITS/5 ML SYRINGE IV (08:23)
[2023-01-24] MEDS: Normal Saline Flush 10 ML SYR IVP (08:23)
== END 2023-02-09 23:59 | disposition home or self-care (01) ==
LOC: INF 01:05
PROVIDERS: PCP Internal Medicine; Visit Provider Internal Medicine Hematology & Oncology
DX: C94.80 Other specified leukemias not having achieved remission (principal); Z45.2 Encounter for adjustment and management of vascular access device
CPT/HCPCS: 96523

== ENCOUNTER 2023-02-21 08:00 | Outpatient (RCR) | payer OTHER, SELFPAY ==
[2023-02-21] MEDS: Normal Saline Flush 10 ML SYR IVP (08:14)
[2023-02-21] MEDS: Heparin 500 UNITS/5 ML SYRINGE IV (08:14)
[2023-02-21 08:45] LABS: HCT 44.3 % (40.0-50.0); HGB 15.1 g/dL (13.5-17.5); MCHC 34.1 % (32.0-36.0); MCV 97 fL (80-95); Platelet Count 278 10^3/uL (130-400); RBC 4.57 10^6/uL (4.36-5.78); RDW 14.6 % (11.8-14.1); RDW-SD 52.6 fL; WBC 6.68 10^3/uL (4.4-10.8)
== END 2023-03-12 23:59 | disposition home or self-care (01) ==
LOC: INF 08:00
PROVIDERS: PCP Internal Medicine; Visit Provider Internal Medicine Hematology & Oncology
DX: C91.10 Chronic lymphocytic leukemia of B-cell type not having achieved remission; Z45.2 Encounter for adjustment and management of vascular access device
CPT/HCPCS: 36591; 85027; J1642

== ENCOUNTER 2023-04-03 01:07 | Outpatient (RCR) | payer OTHER, SELFPAY ==
[2023-04-03] MEDS: Normal Saline Flush 10 ML SYR IVP (07:55)
[2023-04-03] MEDS: Heparin 500 UNITS/5 ML SYRINGE IV (07:55)
== END 2023-04-10 23:59 | disposition home or self-care (01) ==
LOC: INF 01:07
PROVIDERS: PCP Internal Medicine; Visit Provider Internal Medicine Hematology & Oncology
DX: Z45.2 Encounter for adjustment and management of vascular access device (principal)
CPT/HCPCS: 96523; J1642

== ENCOUNTER 2023-05-02 01:04 | Outpatient (RCR) | payer OTHER, SELFPAY ==
[2023-05-02] MEDS: Normal Saline Flush 10 ML SYR IVP (13:00)
[2023-05-02] MEDS: Heparin 500 UNITS/5 ML SYRINGE IV (13:01)
== END 2023-05-11 23:59 | disposition home or self-care (01) ==
LOC: INF 01:04
PROVIDERS: PCP Internal Medicine; Visit Provider Internal Medicine Hematology & Oncology
DX: D59.9 Acquired hemolytic anemia, unspecified; Z45.2 Encounter for adjustment and management of vascular access device
CPT/HCPCS: 96523; J1642

== ENCOUNTER 2023-07-04 02:22 | Outpatient (RCR) | payer OTHER, SELFPAY ==
[2023-07-04] MEDS: Heparin 500 UNITS/5 ML SYRINGE IV (09:20)
[2023-07-04] MEDS: Normal Saline Flush 10 ML SYR IVP (09:20)
== END 2023-07-11 23:59 | disposition home or self-care (01) ==
LOC: INF 02:22
PROVIDERS: PCP Internal Medicine; Visit Provider Internal Medicine Hematology & Oncology
DX: Z45.2 Encounter for adjustment and management of vascular access device (principal)
CPT/HCPCS: 96523; J1642

== ENCOUNTER 2023-07-21 20:30 | Outpatient (REF) | payer OTHER, SELFPAY ==
[2023-07-21 19:27] LABS: Bilirubin Negative (Negative); Blood Moderate (Negative); Clarity Clear (Clear); Glucose Negative (Negative); Ketones Negative (Negative); Leukocyte Esterase Negative (Negative); Nitrite Negative (Negative); Specific Gravity 1.015 (1.005-1.025); Urobilinogen 0.2 mg/dL (Up to 0.2)
[2023-07-21 19:43] LABS: Bacteria Rare HPF (Negative); C & S Indicated? C&S Done As Ordered; Casts Negative LPF (Negative); Crystals Negative HPF (Negative); Epithelial Cells Rare HPF (Negative); Mucus Trace (Negative); Other Cells Rare Renal (Negative); WBC 0-2 HPF (0-5)
== END 2023-07-21 20:31 | disposition home or self-care (01) ==
LOC: LBN 20:30
PROVIDERS: PCP Internal Medicine; Visit Provider Internal Medicine Hematology & Oncology
DX: R82.89 Other abnormal findings on cytological and histological examination of urine (principal)
CPT/HCPCS: 81003; 81015; 87086

== ENCOUNTER 2023-07-26 22:04 | Emergency (ER) | payer OTHER, SELFPAY ==
[2023-07-26] VITALS (13 sets, daily range): BP systolic 132–205; BP diastolic 50–122; PULSE 54–118; RESP 24; TEMP 36.3; O2SAT 89–95
--- NOTE | 2023-07-26 22:12 | ED.GENADUL_ITS ---
Discharge Plan Disposition Patient Disposition: Home Condition: Stable Discharge Details Clinical Impression: Diarrhea, Acute urinary retention, Acute hypokalemia Primary Care Provider: Vero Gutiérrez ED Provider: Connie Reid Home Meds and New Rx's Prescriptions: No Action Azothyoprin 2 PO DAILY terazosin 2 MG capsule 2 mg PO DAILY ondansetron 4 MG tablet,disintegrating 4 mg PO PRN PRN quetiapine 25 mg Tablet 25 mg PO HS lisinopril 10 mg Tablet 10 mg PO DAILY sertraline 25 mg Tablet 12.5 mg PO DAILY Imbruvica 140 mg Tablet 140 mg PO DAILY Discharge Instructions Instructions: How to Care for Your Betts Catheter, Betts Catheter, Diarrhea, Adult ED, High-potassium diet Additional Instructions: Your potassium is low today at 2.8, normal is approximately 3.5-5.5, you are given potassium supplement here in the ER. Please practice a high potassium diet over the next few days and follow-up with your primary care provider. Please drink electrolyte solution such as Gatorade or similar while having diarrhea. Please follow-up with the [facility] within the next 1 to 2 days regarding your visit here in the ER today. Follow up with primary care provider in 3-5 days. Return to ED sooner if any worsening abdominal pain, diarrhea, dizziness, chest pain , fever or concerns. Thank you for allowing us to care for you today. Referrals: Vero Gutiérrez [Primary Care Provider] - 3 days Discharge Data Discharge Date/Time-TO BE ENTERED AT DEPARTURE: 07/27/23 00:20 HPI General Mode of arrival: ambulatory . Date/Time Provider Initiated Documentation: 07/26/23 22:08 . Limitations to Documentation: no limitations . Information obtained by: patient, family, RN notes reviewed and old records nancy mitchell . HPI Narrative: 72-year-old male presents to the ER with chief complaint of diarrhea, abdominal pressure and decreased urination which began at around approximately 4 PM. Patient had 3 bladder stones removed yesterday at the [facility], they took the catheter out this morning at 8:30 AM was urinating fine until this evening. To take oxycodone 5 mg 1 hour prior to arrival. is unable to pass a catheter at home past the prostate. Patient did have some diarrhea upon arrival. On arrival appears to be in moderate to severe discomfort, he is tachycardic and hypertensive. Related Data Home Medications Medication Instructions Recorded Confirmed Azothyoprin 2 PO DAILY 12/19/13 04/20/14 terazosin 2 mg capsule 2 mg PO DAILY 12/19/13 07/26/23 ondansetron 4 mg disintegrating 4 mg PO PRN PRN 04/21/16 07/26/23 tablet ibrutinib 140 mg tablet (Imbruvica) 140 mg PO DAILY 08/18/18 07/26/23 lisinopril 10 mg tablet 10 mg PO DAILY 08/18/18 07/26/23 quetiapine 25 mg tablet 25 mg PO HS 08/18/18 07/26/23 sertraline 25 mg tablet 12.5 mg PO DAILY 08/18/18 07/26/23 Allergies Allergy/AdvReac Type Severity Reaction Status Date / Time diphenhydramine HCl Allergy Unverified 03/20/22 11:30 [From Benadryl] prochlorperazine Allergy Unverified 03/20/22 11:30 [From Compazine] silver Allergy Unverified 03/20/22 11:30 [From Tegaderm AG Mesh] General Stated Complaint: Urinary TOBY: 3 Review of Systems Gastrointestinal Gastrointestinal: Reports abdominal pain, Reports diarrhea, Denies nausea and Denies vomiting Genitourinary Genitourinary: Reports as per HPI, Reports oliguria and Reports difficulty uri nating Exam Narrative Exam Narrative: Constitutional: Alert and oriented x3. Appears stated age. Thin body habitus. Patient is very uncomfortable, pacing in room complaining of suprapubic bladder fullness. Head: Normocephalic, no trauma. Eyes: Pupils PERRL, Red reflex noted, EOM's intact. Eyelids symmetrical without lesions, discharge, or swelling. ENT: Bilateral TM's WNL, External ear normal to inspection, no mastoid TTP, swelling, or erythema, Nasal turbinates WNL, no nasal discharge. Normal dentition, Posterior pharynx WNL, no exudate. Chest: Tachycardia upon arrival, normal S1, S2, distal pulses intact. Port-A-Cath noted to the right anterior chest wall. Resp: Lungs clear to auscultation bilaterally, no wheezes, rales, or rhonchi. Abdomen: Soft, suprapubic tenderness, bladder fullness palpated tender. Musculoskeletal: Normal gait, Moves all 4 extremities without difficulty. Skin: No suspicious rashes or lesions. Capillary refill less than 2 sec. Neurologic: Cranial nerves II-XII intact. Alert and oriented x 3. Motor: No deficits noted. Sensory: Intact bilaterally all 4 extremities. Hematologic/Lymphatic: No ecchymosis, no lymphadenopathy. Course Vital Signs Vital signs: Vital Signs Pulse 118 H 07/26/23 22:05 Respiratory Rate 24 07/26/23 22:05 Blood Pressure 205/122 H 07/26/23 22:05 Pulse Oximetry 95 07/26/23 22:05 Pulse 118 H 07/26/23 22:05 Respiratory Rate 24 07/26/23 22:05 Blood Pressure 205/122 H 07/26/23 22:05 Blood Pressure Position Sitting 07/26/23 22:05 Pulse Oximetry 95 07/26/23 22:05 Oxygen Delivery Method Room Air 07/26/23 22:05 Oxygen Flow Rate 0 07/26/23 22:05 Pain Level 10 07/26/23 22:05 Medical Decision Making 72-year-old male presents to the ER with chief complaint of diarrhea, abdominal pressure and decreased urination which began at around approximately 4 PM. Patient had 3 bladder stones removed yesterday at the [facility], they took the catheter out this morning at 8:30 AM was urinating fine until this evening. To take oxycodone 5 mg 1 hour prior to arrival. is unable to pass a catheter at home past the prostate. Patient did have some diarrhea upon arrival. On arrival appears to be in moderate to severe discomfort, he is tachycardic and hypertensive. Bladder scan ordered upon arrival, lidocaine Uro-Jet and Betts catheter placement with coude. BC CMP, patient does have a Port-A-Cath. On patient reevaluation he feels much better. He has had 650 cc of urine output which is orange in nature and clear he has been taking Pyridium. He is resting comfortably. Pending labs at this time. CBC shows no leukocytosis, sodium is 144 potassium 2.8 glucose 155, BUN 20 which is at baseline. 40 mill equivalents of potassium p.o. ordered. Will send patient home with intact Betts catheter discussed this with who verbalized understanding is in agreement with the plan. They do have some leg bags at home. Upon further discussion patient does have leukemia and sarcoidosis, discuss the hypokalemia potassium of 2.8, and 40 mill colons of liquid potassium p.o. ordered. does state that he does have a history of low potassium and she was under the impression that he was taking potassium supplements which he reports he is not currently taking. i did encourage high potassium ddiet and potassium supplements and close follow up. Discussed electrolyte and oral rehydration while having diarrhea and high potassium diet they verbalized understanding. Patient is much more comfortable at this time. He is resting, breathing eupneic. Expected disposition is to discharge patient home into the care of after medications with follow up at [facility] with urology. This text was generated using [employer] dictation system, please disregard any oddities of phrase or misspellings. Lab Data Lab results reviewed: Yes I reviewed the patient's lab results. Labs: Laboratory Tests Range/Units 07/26/23 22:35 WBC (4.4-10.8) 10^3/uL 6.53 RBC (4.36-5.78) 10^6/uL 4.20 L Hgb (13.5-17.5) g/dL 14.2 Hct (40.0-50.0) % 40.8 MCV (80-95) fL 97 H MCH (27.0-33.0) pg 33.8 H MCHC (32.0-36.0) % 34.8 RDW (11.8-14.1) % 14.3 H Plt Count (130-400) 10^3/uL 261 MPV (8.0-11.0) fL 10.0 Immature Gran % % 0.0 Neutrophils % % 59.0 Lymphocytes % % 17.0 Atypical Lymphs % % 2 Monocytes % % 20.0 Eosinophils % % 2.0 Basophils % % 0.0 Nucleated RBC % (0.0-0.3) % 0.0 Absolute Neutrophils (1.2-6.7) 10^3/uL 3.85 Absolute Lymphocytes (1.2-3.4) 10^3/uL 1.24 Absolute Monocytes (0.1-0.8) 10^3/uL 1.31 H Absolute Eosinophils (0.0-0.7) 10^3/uL 0.13 Absolute Basophils (0.0-0.2) 10^3/uL 0.00 RBC Morphology Normal Sodium (136-145) mmol/L 144 Potassium (3.5-5.1) mmol/L 2.8 L* Chloride (98-107) mmol/L 107 Carbon Dioxide (21.0-32.0) mmol/L 26.0 Anion Gap (3-11) mmol/L 11.0 BUN (7-18) mg/dL 20 H Creatinine (0.70-1.30) mg/dL 1.0 Est GFR (CKD-EPI 2020) (mL/min/1.73m2) 80.47 Glucose (74-106) mg/dL 155 H Calcium (8.5-10.1) mg/dL 8.8 Total Bilirubin (0.2-1.0) mg/dL 0.5 AST (15-37) U/L 27 ALT (16-63) U/L 28 Alkaline Phosphatase (46-116) U/L 99 Total Protein (6.4-8.2) g/dL 6.0 L Albumin (3.4-5.0) g/dL 3.4 Quality:[facility] Health Related Social Needs: No Data to Display PFSH All Active Problems (Updated 07/26/23 @ 23:25 by Connie Reid NP) Acute hypokalemia (Acute) Acute urinary retention (Acute) Diarrhea (Acute) Social History Smoking/Tobacco Use Status: Never Smoking risk assessment performed?: Yes Alcohol Intake: never Drug use: Never Substance use type: does not use Do you feel safe at home: Yes Do you feel safe in your relationship?: Yes
[2023-07-26 22:43] LABS: Abs Immature Grans 0.02 10^3/uL (0.0-0.06); HCT 40.8 % (40.0-50.0); HGB 14.2 g/dL (13.5-17.5); MCH 33.8 pg (27.0-33.0); MCHC 34.8 % (32.0-36.0); MCV 97 fL (80-95); Platelet Count 261 10^3/uL (130-400); RDW 14.3 % (11.8-14.1); RDW-SD 50.7 fL; WBC 6.53 10^3/uL (4.4-10.8)
[2023-07-26 22:54] LABS: Absolute Eosinophil Count 0.13 10^3/uL (0.0-0.7); Absolute Lymphocyte Count 1.24 10^3/uL (1.2-3.4); Absolute Monocyte Count 1.31 10^3/uL (0.1-0.8); Absolute Neutrophil Count 3.85 10^3/uL (1.2-6.7); Atypical Lymphocytes % 2 %; Diff Comment Manual Differential; RBC Morphology Normal
[2023-07-26 23:03] LABS: ALT 28 U/L (16-63); AST 27 U/L (15-37); Albumin 3.4 g/dL (3.4-5.0); Alkaline Phosphatase 99 U/L (46-116); BUN 20 mg/dL (7-18); Bilirubin, Total 0.5 mg/dL (0.2-1.0); Calcium 8.8 mg/dL (8.5-10.1); Chloride 107 mmol/L (98-107); Estimated GFR 80.47 (mL/min/1.73m2); Glucose 155 mg/dL (74-106); Sodium 144 mmol/L (136-145)
[2023-07-26 23:06] LABS: Potassium 2.8 mmol/L (3.5-5.1)
[2023-07-27] VITALS: O2SAT 91
[2023-07-27 00:01] VITALS: BP 158/63; PULSE 54
[2023-07-27] MEDS: Potassium Chloride Liquid 20 MEQ PKT 40 MEQ PO (00:02)
[2023-07-27 00:10] VITALS: TEMP 36.5
== END 2023-07-27 00:20 | disposition home or self-care (01) ==
PROVIDERS: Emergency Provider Registered Nurse Emergency; PCP Internal Medicine
DX: R33.8 Other retention of urine (principal); R19.7 Diarrhea, unspecified; E87.6 Hypokalemia
CPT/HCPCS: 36415; 51702; 51798; 80053; 99284; 85025; 99283

== ENCOUNTER 2023-08-29 00:54 | Outpatient (RCR) | payer OTHER, SELFPAY ==
[2023-08-29] MEDS: Normal Saline Flush 10 ML SYR IVP (07:52)
== END 2023-09-10 23:59 | disposition home or self-care (01) ==
LOC: INF 00:54
PROVIDERS: PCP Internal Medicine; Visit Provider Internal Medicine Hematology & Oncology
DX: Z45.2 Encounter for adjustment and management of vascular access device (principal)
CPT/HCPCS: 96523

== ENCOUNTER 2023-10-03 00:31 | Outpatient (RCR) | payer OTHER, SELFPAY ==
[2023-10-03] MEDS: Normal Saline Flush 10 ML SYR IVP (08:30)
[2023-10-03] MEDS: Heparin 500 UNITS/5 ML SYRINGE IV (08:30)
== END 2023-10-11 23:59 | disposition home or self-care (01) ==
LOC: INF 00:31
PROVIDERS: PCP Internal Medicine; Visit Provider Internal Medicine Hematology & Oncology
DX: Z45.2 Encounter for adjustment and management of vascular access device (principal)
CPT/HCPCS: 96523; J1642

== ENCOUNTER 2023-11-14 01:24 | Outpatient (RCR) | payer OTHER, SELFPAY ==
[2023-11-14] MEDS: Normal Saline Flush 10 ML SYR IVP (08:15)
[2023-11-14 08:53] LABS: HCT 42.1 % (40.0-50.0); HGB 14.9 g/dL (13.5-17.5); MCHC 35.4 % (32.0-36.0); MCV 99 fL (80-95); MPV 10.6 fL (8.0-11.0); Platelet Count 243 10^3/uL (130-400); RBC 4.26 10^6/uL (4.36-5.78); RDW-SD 54.5 fL; WBC 8.48 10^3/uL (4.4-10.8)
== END 2023-12-11 23:59 | disposition home or self-care (01) ==
LOC: INF 01:24
PROVIDERS: PCP Internal Medicine; Visit Provider Internal Medicine Hematology & Oncology
DX: C91.10 Chronic lymphocytic leukemia of B-cell type not having achieved remission (principal)
CPT/HCPCS: 36591; 85027; 96523

== ENCOUNTER 2024-02-20 00:48 | Outpatient (RCR) | payer OTHER, SELFPAY ==
[2024-02-20] MEDS: Normal Saline Flush 10 ML SYR IVP (08:48)
== END 2024-03-12 23:59 | disposition home or self-care (01) ==
LOC: INF 00:48
PROVIDERS: PCP Internal Medicine; Visit Provider Internal Medicine Hematology & Oncology
DX: Z45.2 Encounter for adjustment and management of vascular access device (principal)
CPT/HCPCS: 96523

== ENCOUNTER 2024-04-02 00:37 | Outpatient (RCR) | payer OTHER, SELFPAY ==
[2024-04-02] MEDS: Normal Saline Flush 10 ML SYR IVP (08:05)
[2024-04-02 09:00] LABS: HCT 39.3 % (40.0-50.0); HGB 13.7 g/dL (13.5-17.5); MCH 37.8 pg (27.0-33.0); MCHC 34.9 % (32.0-36.0); MCV 109 fL (80-95); Platelet Count 250 10^3/uL (130-400); RBC 3.62 10^6/uL (4.36-5.78); RDW 16.2 % (11.8-14.1); RDW-SD 58.4 fL; WBC 10.65 10^3/uL (4.4-10.8)
[2024-04-02 09:19] LABS: ALT 34 U/L (16-63); AST 23 U/L (15-37); Albumin 3.7 g/dL (3.4-5.0); Alkaline Phosphatase 92 U/L (46-116); Anion Gap 5.8 mmol/L (3-11); BUN 26 mg/dL (7-18); Bilirubin, Direct 0.2 mg/dL (0.0-0.2); Bilirubin, Total 0.99 mg/dL (0.2-1.0); CO2 28.2 mmol/L (21.0-32.0); CREATININE 0.9 mg/dL (0.70-1.30); Calcium 9.5 mg/dL (8.5-10.1); Chloride 109 mmol/L (98-107); Estimated GFR 90.74 (mL/min/1.73m2); Glucose 102 mg/dL (74-106); Potassium 3.9 mmol/L (3.5-5.1); Sodium 143 mmol/L (136-145); Total Protein 5.9 g/dL (6.4-8.2)
== END 2024-04-09 23:59 | disposition home or self-care (01) ==
LOC: INF 00:37
PROVIDERS: PCP Internal Medicine; Visit Provider Internal Medicine Hematology & Oncology
DX: C91.10 Chronic lymphocytic leukemia of B-cell type not having achieved remission (principal)
CPT/HCPCS: 36591; 80053; 80076; 85027

== ENCOUNTER 2024-07-02 08:04 | Outpatient (RCR) | payer OTHER, SELFPAY ==
[2024-07-02] MEDS: Normal Saline Flush 10 ML SYR IVP (08:29)
== END 2024-07-10 23:59 | disposition home or self-care (01) ==
LOC: INF 08:04
PROVIDERS: PCP Internal Medicine; Visit Provider Internal Medicine Hematology & Oncology
DX: Z45.2 Encounter for adjustment and management of vascular access device (principal)
CPT/HCPCS: 96523

== ENCOUNTER 2024-08-20 00:54 | Outpatient (RCR) | payer OTHER, SELFPAY ==
[2024-08-20] MEDS: Normal Saline Flush 10 ML SYR IVP (08:20)
[2024-08-20 08:25] LABS: Abs Immature Grans 0.03 10^3/uL (0.0-0.06); HCT 42.1 % (40.0-50.0); HGB 14.2 g/dL (13.5-17.5); Immature Grans % 0.3 %; MCH 34.1 pg (27.0-33.0); MCHC 33.7 % (32.0-36.0); MCV 101 fL (80-95); MPV 10.1 fL (8.0-11.0); Platelet Count 274 10^3/uL (130-400); RBC 4.17 10^6/uL (4.36-5.78); RDW 13.3 % (11.8-14.1); RDW-SD 49.9 fL; WBC 9.75 10^3/uL (4.4-10.8)
[2024-08-20 08:40] LABS: ALT 31 U/L (16-63); AST 25 U/L (15-37); Albumin 3.7 g/dL (3.4-5.0); Alkaline Phosphatase 81 U/L (46-116); Anion Gap 10.8 mmol/L (3-11); BUN 18 mg/dL (7-18); Bilirubin, Direct 0.2 mg/dL (0.0-0.2); Bilirubin, Total 0.9 mg/dL (0.2-1.0); CO2 26.2 mmol/L (21.0-32.0); Calcium 9.2 mg/dL (8.5-10.1); Chloride 105 mmol/L (98-107); Estimated GFR 97.90 (mL/min/1.73m2); Glucose 83 mg/dL (74-106); LDH 229 U/L (85-227); Potassium 4.0 mmol/L (3.5-5.1); Sodium 142 mmol/L (136-145); Total Protein 6.1 g/dL (6.4-8.2)
[2024-08-20 08:47] LABS: RBC Morphology Normal
== END 2024-09-09 23:59 | disposition home or self-care (01) ==
LOC: INF 00:54
PROVIDERS: PCP Internal Medicine; Visit Provider Internal Medicine Hematology & Oncology
DX: C91.10 Chronic lymphocytic leukemia of B-cell type not having achieved remission (principal); Z45.2 Encounter for adjustment and management of vascular access device
CPT/HCPCS: 36591; 80053; 80076; 83615; 85025

== ENCOUNTER 2024-10-22 03:10 | Outpatient (RCR) | payer OTHER, SELFPAY ==
[2024-10-22] MEDS: Normal Saline Flush 10 ML SYR IVP (09:21)
== END 2024-11-09 23:59 | disposition home or self-care (01) ==
LOC: INF 03:10
PROVIDERS: PCP Internal Medicine; Visit Provider Internal Medicine Hematology & Oncology
DX: Z45.2 Encounter for adjustment and management of vascular access device (principal)
CPT/HCPCS: 96523

== ENCOUNTER 2024-12-24 00:09 | Outpatient (RCR) | payer OTHER, SELFPAY ==
[2024-12-24] MEDS: Normal Saline Flush 10 ML SYR IVP (10:57)
== END 2025-01-09 23:59 | disposition home or self-care (01) ==
LOC: INF 00:09
PROVIDERS: PCP Internal Medicine; Visit Provider Internal Medicine Hematology & Oncology
DX: Z45.2 Encounter for adjustment and management of vascular access device (principal)
CPT/HCPCS: 96523

== ENCOUNTER 2025-01-21 00:22 | Outpatient (RCR) | payer OTHER, SELFPAY ==
[2025-01-21] MEDS: Normal Saline Flush 10 ML SYR IVP (07:58)
== END 2025-02-09 23:59 | disposition home or self-care (01) ==
LOC: INF 00:22
PROVIDERS: PCP Internal Medicine; Visit Provider Internal Medicine Hematology & Oncology
DX: Z45.2 Encounter for adjustment and management of vascular access device (principal)
CPT/HCPCS: 96523